=== PATIENT | female | born 1995 | race Caucasian/White ===

== ENCOUNTER 2016-09-15 01:44 | Observation (INO) | payer OTHER ==
[~2016-09-15] VITALS: Ht 177.8 cm; Wt 70.0 kg
[2016-09-15] VITALS (12 sets, daily range): BP systolic 94–112; BP diastolic 46–67
[2016-09-15] MEDS ORDERED: HYDR-2666 PO (02:19)
[2016-09-15] MEDS ORDERED: ONDANSETRON PF 4 MG/2 ML VIAL. IV PRN ×2 (03:00→09:45)
[2016-09-15] MEDS ORDERED: FENTANYL PF 100 MCG/2 ML VIAL. IV PRN ×2 (03:00→09:45)
[2016-09-15] MEDS ORDERED: ACETAMINOPHEN 325 MG TABLET. PO PRN (03:00)
[2016-09-15] MEDS: IV NORMAL SALINE 1000ML BAG 1,000 ML IV SCH ×2 (03:37→16:10)
[2016-09-15 06:00] LABS: BASO % 1 % (0-3); EOS % 1 % (0-3); HEMATOCRIT 35.4 % (36.0-47.0); HEMOGLOBIN 11.7 g/dL (12.0-15.5); LYMPH % 32 % (24-48); MEAN CORPUSCULAR HEMOGLOBIN 28 pg (25-35); MEAN CORPUSCULAR HGB CONC 33 g/dL (31-37); MEAN CORPUSCULAR VOLUME 84 fL (79-100); MONO % 8 % (0-9); NEUT % 58 % (31-73); PLATELET COUNT 172 x10^3/uL (140-400); RED CELL DISTRIBUTION WIDTH 14.3 % (11.5-14.5); WHITE BLOOD COUNT 6.3 x10^3/uL (4.0-11.0)
[2016-09-15 06:10] LABS: INR 1.3 (0.8-1.1); PROTHROMBIN TIME PATIENT 15.1 SEC (11.7-14.0)
[2016-09-15] MEDS ORDERED: PNEUMOCOCCAL VAX SCREEN BY RX. MC ONE (06:15)
[2016-09-15 06:29] LABS: CREATININE 0.9 mg/dL (0.6-1.0); GFR 79.8; POTASSIUM 3.8 mmol/L (3.5-5.1)
[2016-09-15 06:56] LABS: CALCIUM 8.3 mg/dL (8.5-10.1)
--- NOTE | 2016-09-15 08:13 | PDOC2 ---
VIRAL BOGGS PRINCIPAL SECURITY ARCHITECT 09/15/16 0813: CONSULT Date of Consult Date of Consult DATE: 09/15/16 TIME: 08:08 Reason for Consult Reason for Consult: cholelithiasis Referring Physician Referring Physician: Dr Avalos Identification/Chief Complaint Chief Complaint abdominal pain Source Source: Chart review, Patient History of Present Illness Reason for Visit: Reports abdominal pain intermittently for last 2 years, reports aggravated by eating. Associated nausea and emesis. This weekend pain was severe, reported RUQ, epigastric with radiation to her back. + history of constipation. Pain improved with medication Past Medical History Past Medical History no pertinent history Past Surgical History Past Surgical History: Tonsillectomy Social History <1 pack per day ALCOHOL: rare Drugs: None Lives: Alone Current Medications Current Medications Current Medications Ondansetron HCl (Zofran) 4 mg PRN Q6HRS PRN IV NAUSEA/VOMITING; Start 09/15/16 at 03:00 Fentanyl Citrate (Fentanyl 2ml Vial) 50 mcg PRN Q2HR PRN IV PAIN Last administered on 09/15/16 03:37; Start 09/15/16 at 03:00 Acetaminophen 650 mg 650 mg PRN Q6HRS PRN PO pain/ temp; Start 09/15/16 at 03: 00 Sodium Chloride (Iv Sodium Chloride 0.9% 1000ml Bag) 1,000 ml @ 100 mls/hr Q10H IV Last administered on 09/15/16 03:37; Start 09/15/16 at 03:00 Pneumococcal Polyvalent Vaccine (Do NOT chart on this placeholder) 1 each 1X ONCE MC ; Start 09/15/16 at 06:15; Stop 09/15/16 at 06:16; Status UNV Pneumococcal Polyvalent Vaccine (Pneumovax 23) 0.5 ml ONCE ONCE VAX IM ; Start 09/15/16 at 09:00; Stop 09/15/16 at 09:01 Active Scripts Active Reported Hydrocodone-Apap 5-325 (Hydrocodone Bit/Acetaminophen) 1 Each Tablet 1 Tab PO PRN Q6HRS PRN Allergies Allergies: Coded Allergies: peanut (Verified Allergy, Unknown, 09/15/16) ROS General: YES: Chills, No: Other (fevers) PSYCHOLOGICAL ROS: No: Anxiety, Depression Eyes: No Blurry vision, No Double vision HEENT: No: Heacaches, Sore Throat Hematological and Lymphatic: No: Bleeding Problems, Blood Clots Respiratory: YES: Shortness of breath (acute pain), No: Cough Cardiovascular: yes Chest Pain (acute pain from abdomen radiates up chest), No Palpitations Gastrointestinal: Yes Other (see hpi) Genitourinary: No Dysuria, No Hematuria Musculoskeletal: Yes Joint Pain (left wrist), No Muscle Pain Neurological: No Impaired Coord/balance, No Numbness/Tingling Skin: No Pruritus, No Rash Physical Exam General: Alert, Oriented X3, Cooperative, No acute distress HEENT: PERRLA, Mucous membr. moist/pink Lungs: Clear to auscultation, Normal air movement Heart: Regular rate, Normal S1, Normal S2, No murmurs Abdomen: Soft, Other (ND, mild tenderness to RUQ) Extremities: No clubbing, No cyanosis Skin: No rashes, No breakdown Neuro: Normal speech, Sensation intact MUSCULOSKELETAL: No deformity, No swelling Vitals VITALS Vital Signs Date Time Temp Pulse Resp B/P Pulse Ox O2 Delivery O2 Flow Rate FiO2 09/15/16 07:00 99.1 76 18 96/56 98 Room Air 99.1 Labs Labs Laboratory Tests Test 09/15/16 05:35 White Blood Count 6.3x10^3/uL (4.0-11.0) Red Blood Count 4.20x10^6/uL (3.50-5.40) Hemoglobin 11.7g/dL (12.0-15.5) Hematocrit 35.4% (36.0-47.0) Mean Corpuscular Volume 84fL (79-100) Mean Corpuscular Hemoglobin 28pg (25-35) Mean Corpuscular Hemoglobin Concent 33g/dL (31-37) Red Cell Distribution Width 14.3% (11.5-14.5) Platelet Count 172x10^3/uL (140-400) Neutrophils (%) (Auto) 58% (31-73) Lymphocytes (%) (Auto) 32% (24-48) Monocytes (%) (Auto) 8% (0-9) Eosinophils (%) (Auto) 1% (0-3) Basophils (%) (Auto) 1% (0-3) Neutrophils # (Auto) 3.7x10^3uL (1.8-7.7) Lymphocytes # (Auto) 2.0x10^3/uL (1.0-4.8) Monocytes # (Auto) 0.5x10^3/uL (0.0-1.1) Eosinophils # (Auto) 0.1x10^3/uL (0.0-0.7) Basophils # (Auto) 0.0x10^3/uL (0.0-0.2) Prothrombin Time 15.1SEC (11.7-14.0) Prothromb Time International Ratio 1.3 (0.8-1.1) Sodium Level 143mmol/L (136-145) Potassium Level 3.8mmol/L (3.5-5.1) Chloride Level 107mmol/L (98-107) Carbon Dioxide Level 26mmol/L (21-32) Anion Gap 10 (6-14) Blood Urea Nitrogen 15mg/dL (7-20) Creatinine 0.9mg/dL (0.6-1.0) Estimated GFR (Cockcroft-Gault) 79.8 Glucose Level 85mg/dL (70-99) Calcium Level 8.3mg/dL (8.5-10.1) Laboratory Tests Test 09/15/16 05:35 White Blood Count 6.3x10^3/uL (4.0-11.0) Red Blood Count 4.20x10^6/uL (3.50-5.40) Hemoglobin 11.7g/dL (12.0-15.5) Hematocrit 35.4% (36.0-47.0) Mean Corpuscular Volume 84fL (79-100) Mean Corpuscular Hemoglobin 28pg (25-35) Mean Corpuscular Hemoglobin Concent 33g/dL (31-37) Red Cell Distribution Width 14.3% (11.5-14.5) Platelet Count 172x10^3/uL (140-400) Neutrophils (%) (Auto) 58% (31-73) Lymphocytes (%) (Auto) 32% (24-48) Monocytes (%) (Auto) 8% (0-9) Eosinophils (%) (Auto) 1% (0-3) Basophils (%) (Auto) 1% (0-3) Neutrophils # (Auto) 3.7x10^3uL (1.8-7.7) Lymphocytes # (Auto) 2.0x10^3/uL (1.0-4.8) Monocytes # (Auto) 0.5x10^3/uL (0.0-1.1) Eosinophils # (Auto) 0.1x10^3/uL (0.0-0.7) Basophils # (Auto) 0.0x10^3/uL (0.0-0.2) Prothrombin Time 15.1SEC (11.7-14.0) Prothromb Time International Ratio 1.3 (0.8-1.1) Sodium Level 143mmol/L (136-145) Potassium Level 3.8mmol/L (3.5-5.1) Chloride Level 107mmol/L (98-107) Carbon Dioxide Level 26mmol/L (21-32) Anion Gap 10 (6-14) Blood Urea Nitrogen 15mg/dL (7-20) Creatinine 0.9mg/dL (0.6-1.0) Estimated GFR (Cockcroft-Gault) 79.8 Glucose Level 85mg/dL (70-99) Calcium Level 8.3mg/dL (8.5-10.1) Assessment/Plan Assessment/Plan cholelithiasis CT/US from [facility] reviewed, no cholecystitis, however findings of bile duct dilatation on 09/13 normal LFTS with bili 0.4, yesterday elevated LFTS and T bili 1.2-- repeat LFTS with normal T bili now keep NPO plan lap eleuterio with grams today, will hold off on GI consult unless operative findings warrant consult SHADE AL MD 09/15/16 1105: CONSULT Allergies Allergies: Coded Allergies: peanut (Verified Allergy, Unknown, 09/15/16) Assessment/Plan Assessment/Plan addendum i saw and examined her. i repeated ramirez parts of the consult. 20 yo with 2 year hx of intermittent epigastric and RUQ pain. can be severe. Increasingly frequent and severe episodes recently. pain resolved this am. associated with nausea. no sig pmh no prior abd surgery afeb vss abd soft nd nt ct report noted lab noted a/p cholelithiasis plan lap eleuterio, ioc, poss open. risks of bleeding, infection, need to convert to open, cbd stone, bile leak, duct/arterial/hollow viscus injury and remote risks of ami, cva, dvt/pe, pneumonia and d/w her. i used a drawing to aid the discussion. questions answered and she desires to proceed. VIRAL BOGGS PRINCIPAL SECURITY ARCHITECT Sep 15, 2016 08:13 SHADE AL MD Sep 15, 2016 11:05
[2016-09-15 08:19] LABS: ALBUMIN 3.3 g/dL (3.4-5.0); DIRECT BILIRUBIN 0.2 mg/dL (0.0-0.2); TOTAL BILIRUBIN 0.6 mg/dL (0.2-1.0); TOTAL PROTEIN 6.2 g/dL (6.4-8.2)
[2016-09-15] MEDS ORDERED: PNEUMOC CONJ VACC 23-VALENT 0.5 ML VIAL. VAX IM ONE (09:00)
[2016-09-15] MEDS ORDERED: SURGICEL HEMOSTAT 4X8 EACH. ONE (09:38)
[2016-09-15] MEDS ORDERED: IOHEXOL 300 MG/ML 50 ML VIAL. ONE (09:39)
[2016-09-15] MEDS ORDERED: BUPIVACAINE-EPI 0.5%-1:200000 50 ML VIAL. ONE (09:39)
[2016-09-15] MEDS ORDERED: IV RINGERS,LACTATED 1000ML 1,000 ML IV SCH (09:42)
[2016-09-15] MEDS ORDERED: PROCHLORPERAZINE 10 MG/2 ML VIAL. IV PRN (09:45)
[2016-09-15] MEDS ORDERED: LIDOCAINE 1% 1 ML SYRINGE. ID PRN (09:45)
[2016-09-15] MEDS ORDERED: MORPHINE SULFATE 2 MG/ML DISP.SYRIN. IV PRN (09:45)
[2016-09-15] MEDS ORDERED: HYDROmorphone 2 MG/ML VIAL IV PRN (09:45)
[2016-09-15] MEDS ORDERED: ROCURONIUM 50 MG/5 ML VIAL. ONE (10:02)
[2016-09-15] MEDS ORDERED: ONDANSETRON PF 4 MG/2 ML VIAL. ONE (10:02)
[2016-09-15] MEDS ORDERED: LIDOCAINE 2% 100 MG/5 ML SYRINGE. ONE (10:02)
[2016-09-15] MEDS ORDERED: DEXAMETHASONE SOD PHOS 20 MG/5 ML VIAL. ONE (10:02)
[2016-09-15] MEDS ORDERED: PROPOFOL 20 ML IV ONE (10:02)
[2016-09-15] MEDS ORDERED: FENTANYL PF 100 MCG/2 ML VIAL. ONE ×2 (10:30→11:09)
[2016-09-15] MEDS ORDERED: MIDAZOLAM HCL/PF 2 MG/2 ML VIAL. ONE (10:31)
[2016-09-15] MEDS ORDERED: CEFAZOLIN 2GM PREMIX 50 ML IV PRN (11:00)
[2016-09-15] MEDS ORDERED: GLYCOPYRROLATE 1 MG/5 ML VIAL. ONE (11:16)
[2016-09-15] MEDS ORDERED: NEOSTIGMINE METHYLSULFATE 5 MG/5 ML SYRINGE. ONE (11:16)
[2016-09-15] MEDS ORDERED: DESFLURANE 31 TO 60 MINUTES IH ONE (11:59)
--- NOTE | 2016-09-15 12:11 | RAD ---
Intraoperative cholangiogram History: Cholecystectomy. Procedure: A total of 3 fluoroscopic images of the right upper quadrant were obtained. The cystic duct was cannulated with surgeon and contrast was injected. Total fluoroscopic time was 25 seconds. Findings: There is moderate intrahepatic and extrahepatic biliary dilatation. There is a persistent filling defect involving the inferior common bile duct, worrisome for obstructing stone. No significant contrast material is seen within the duodenal sweep. Impression: Filling defect involving the inferior common bile duct, compatible with obstructing stone creating moderate biliary dilatation.
[2016-09-15] MEDS: FENTANYL PF 100 MCG/2 ML VIAL. IV PRN ×2 (12:26→12:49)
[2016-09-15 12:47] LABS: NEG OBC UR NEG; POS OBC UR POS
[2016-09-15] MEDS ORDERED: HYDROmorphone 2 MG/ML VIAL IVP PRN (13:30)
[2016-09-15] MEDS: OXYCODONE/APAP 5/325 TABLET. PO PRN ×2 (15:04→18:39)
--- NOTE | 2016-09-15 15:25 | PDOC2 ---
GI CONSULT Reason For Consult: CBD stone HPI: HPI: 20 y/o female transferred from [facility] where she was evaluated for RUQ, epigastric, and back pain. Has had pain intermittently for a couple years. Found to have gallstones and mildly dilated CBD w/ elevated LFTs. Underwent lap cholecystectomy w/ Dr. Porras this morning. IOC showed filling defect. Today , bili was normal (0.6), AST 127, ALT 134, normal Alk Phos. Currently has some RUQ pain around incisions and left shoulder/back pain. Feels hungry. Has occasional heartburn improved w/ drinking milk. Denies weight loss, diarrhea, constipation, hematochezia, melena, NSAID use. (Note other notes suggest h/o constipation.) No previous EGD or colonoscopy. PMH: PMH: cholecystectomy, tonsillectomy FH: Family History: No pertinent hx (denies GI cancers) Social History: Smoke: <1 pack per day ALCOHOL: rare Drugs: None ROS: GEN: Denies fevers, chills, sweats HEENT: Denies blurred vision, sore throat CV: Denies chest pain RESP: Denies shortness of air, cough GI: Per HPI : Denies hematuria, dysuria ENDO: Denies weight changes NEURO: Denies confusion, dizziness MSK: Denies weakness, +back pain SKIN: Denies jaundice, pruritus VItals: Vitals: Vital Signs Date Time Temp Pulse Resp B/P Pulse Ox O2 Delivery O2 Flow Rate FiO2 09/15/16 15:04 97 Room Air 09/15/16 13:14 97.8 60 14 105/58 97.8 09/15/16 12:49 6.0 Labs: Labs: Laboratory Tests Test 09/15/16 05:00 09/15/16 05:35 09/15/16 10:15 Total Bilirubin 0.6mg/dL (0.2-1.0) Direct Bilirubin 0.2mg/dL (0.0-0.2) Aspartate Amino Transf (AST/SGOT) 127U/L (15-37) Alanine Aminotransferase (ALT/SGPT) 134U/L (14-59) Alkaline Phosphatase 105U/L (46-116) Total Protein 6.2g/dL (6.4-8.2) Albumin 3.3g/dL (3.4-5.0) White Blood Count 6.3x10^3/uL (4.0-11.0) Red Blood Count 4.20x10^6/uL (3.50-5.40) Hemoglobin 11.7g/dL (12.0-15.5) Hematocrit 35.4% (36.0-47.0) Mean Corpuscular Volume 84fL (79-100) Mean Corpuscular Hemoglobin 28pg (25-35) Mean Corpuscular Hemoglobin Concent 33g/dL (31-37) Red Cell Distribution Width 14.3% (11.5-14.5) Platelet Count 172x10^3/uL (140-400) Neutrophils (%) (Auto) 58% (31-73) Lymphocytes (%) (Auto) 32% (24-48) Monocytes (%) (Auto) 8% (0-9) Eosinophils (%) (Auto) 1% (0-3) Basophils (%) (Auto) 1% (0-3) Neutrophils # (Auto) 3.7x10^3uL (1.8-7.7) Lymphocytes # (Auto) 2.0x10^3/uL (1.0-4.8) Monocytes # (Auto) 0.5x10^3/uL (0.0-1.1) Eosinophils # (Auto) 0.1x10^3/uL (0.0-0.7) Basophils # (Auto) 0.0x10^3/uL (0.0-0.2) Prothrombin Time 15.1SEC (11.7-14.0) Prothromb Time International Ratio 1.3 (0.8-1.1) Sodium Level 143mmol/L (136-145) Potassium Level 3.8mmol/L (3.5-5.1) Chloride Level 107mmol/L (98-107) Carbon Dioxide Level 26mmol/L (21-32) Anion Gap 10 (6-14) Blood Urea Nitrogen 15mg/dL (7-20) Creatinine 0.9mg/dL (0.6-1.0) Estimated GFR (Cockcroft-Gault) 79.8 Glucose Level 85mg/dL (70-99) Calcium Level 8.3mg/dL (8.5-10.1) Urine Test Negative (NEG) Allergies: Coded Allergies: peanut (Verified Allergy, Unknown, 09/15/16) Medications: Current Medications Medications (Trade) Dose Ordered Sig/Javier Route PRN Reason Start Time Stop Time Status Last Admin Dose Admin Fentanyl Citrate 50 mcg 50 mcg PRN Q2HR PRN IV PAIN 09/15/16 03:00 09/15/16 03:37 Sodium Chloride 1,000 ml @ 100 mls/hr Q10H IV 09/15/16 03:00 09/15/16 03:37 Cefazolin Sodium/ Dextrose (Ancef 2gm Premix) 50 ml @ 100 mls/hr 1X PREOP PRN IV general operations agent 09/15/16 11:00 09/16/16 18:00 09/15/16 11:05 Iohexol (Omnipaque 300 Mg/ml) 50 ml STK-MED ONCE .ROUTE 09/15/16 09:39 09/15/16 09:40 DC 09/15/16 11:26 Bupivacaine HCl/ Epinephrine Bitart (Marcaine-Epi 0.5%-1:[id number]) 50 ml STK-MED ONCE .ROUTE 09/15/16 09:39 09/15/16 09:40 DC 09/15/16 11:21 Fentanyl Citrate (Fentanyl 2ml Vial) 50 mcg PRN Q5MIN PRN IV MODERATE PAIN 09/15/16 09:45 09/15/16 18:00 09/15/16 12:49 Oxycodone/ Acetaminophen (Percocet 5/325) 2 tab PRN Q4HRS PRN PO PAIN 09/15/16 13:45 09/15/16 15:04 Imaging: Imaging: IOC 09/15/16 Impression: Filling defect involving the inferior common bile duct, compatible with obstructing stone creating moderate biliary dilatation. PE: GEN: NAD HEENT: Atraumatic, PERRL LUNGS: CTAB HEART: RRR, ABD: S/ND, RUQ and epigastric tenderness EXTREMITY: No edema SKIN: No rashes, no jaundice NEURO/PSYCH: A & O 3 A/P: A/P: S/p cholecystectomy w/ abnormal IOC -filling defect as above Elevated LFTs - improved Upper abd pain, left shoulder/back pain Heartburn -occasional, no previous EGD, improved w/ milk -- Labs to be rechecked tomorrow - follow LFTs w/ consideration for ERCP. Dr. Aviles to see later. JONATHAN BLAIR Sep 15, 2016 15:25
--- NOTE | 2016-09-15 15:56 | PDOC ---
BRIEF OPERATIVE NOTE Pre-Op Diagnosis cholelithiasis Post-Op Diagnosis same +cbd stone Procedure Performed lap eleuterio,ioc Surgeon merlyn al Anesthesia Type: General Blood Loss 25 IV Fluid 1300 Specimens Obtained gb Findings cbd stone Complications 0 Additional Remarks jessica well, to rr stable. GI consult. d/w Zee. SHADE AL MD Sep 15, 2016 15:56
[2016-09-15] MEDS: PANTOPRAZOLE 40 MG TABLET.DR. PO SCH (16:59)
[2016-09-15] MEDS: CEFAZOLIN SODIUM 1 GM in IV NORMAL SALINE 50ML 50 ML IV SCH ×2 (16:59→21:37)
[2016-09-16] MEDS: IV NORMAL SALINE 1000ML BAG 1,000 ML IV SCH ×2 (01:57→09:00)
[2016-09-16] MEDS: OXYCODONE/APAP 5/325 TABLET. PO PRN ×3 (02:05→14:56)
--- NOTE | 2016-09-16 02:10 | OP ---
DATE OF SURGERY: 09/15/2016 PREOPERATIVE DIAGNOSIS: Cholelithiasis. POSTOPERATIVE DIAGNOSES: 1. Cholelithiasis. 2. Choledocholithiasis. PROCEDURE: Laparoscopic cholecystectomy with intraoperative cholangiogram. SURGEON: Shade Al M.D. ANESTHESIA: General. ESTIMATED BLOOD LOSS: 25 mL. INTRAVENOUS FLUIDS: 1500 mL. INDICATIONS: The patient is a 20-year-old female who presents with episodes of biliary colic. She is taken for cholecystectomy. FINDINGS: She has a filling defect and a meniscus sign in the distal common duct. No flow of contrast into the duodenum. She will be maintained on IV antibiotics postoperatively, there was concern for potentially developed cholangitis, now that she has had manipulation of her common duct, GI has been consulted as well. PROCEDURE IN DETAIL: After informed consent was obtained, the patient was taken to the operating room and placed in the supine position. After adequate induction of general anesthesia, she was prepped and draped in the usual sterile fashion. An umbilical skin incision was made with a scalpel, subcutaneous tissues were spread with a hemostat. [facility] was used to grab the fascia and lift it anteriorly. Veress needled was used to gain access to the peritoneal cavity. Low opening pressures confirmed intraperitoneal placement of Veress. Pneumoperitoneum to 15 mmHg was established followed by placement of 5-mm port. A 5-mm 30-degree lens was inserted, which revealed good port placement. No evidence of entry trauma. She was placed head up, rotated towards her left. Three additional ports were placed under direct vision, one was 11-mm epigastric port and two 5-mm right lateral ports. The fundus of the gallbladder was retracted over the liver and slightly towards the right. The infundibulum was retracted towards the toes and towards the right to open the triangle of Calot. The leading peritoneal edge was scored with cautery medially and laterally and carried back towards the liver at the level of the infundibulum. [place] dissector was used to dissect out the triangle of Calot. At the completion of dissection, two structures were seen leading directly to the gallbladder, one was a cystic artery and one was a cystic duct. The gallbladder had been dissected away from the cystic plate. The liver could be seen behind the gallbladder. The base of the gallbladder was free of extraneous tissue. Two clips were placed in the cystic artery proximally and one distally and the artery divided sharply. A clip was placed on the cystic duct adjacent to the gallbladder. Ductotomy was made with scissors. Intraoperative cholangiogram showed free flow of contrast through the cystic duct, common bile duct, common hepatic, left and right hepatics and intrahepatic radicles with no flow of contrast into the duodenum. Distally, she had a filling defect with a meniscus sign and the extrahepatic ducts were dilated. All consistent with choledocholithiasis. The cholangiogram was then completed. Two clips were placed on the cystic duct, distal ductotomy. Ductotomy completed with scissors. The cystic duct was large, and therefore, it was further secured with a PDS Endoloop placed just distal to the clips. Care was taken to make sure that the PDS Endoloop did not encroach upon undissected tissue and that it encompass the entire diameter of the duct. There was no bile leakage at this point. Gallbladder was removed from bed of the liver with cautery and placed in a laparoscopic bag and brought out through the epigastric incision. She had a vessel that was leading to the right side of the liver and this was just at the cystic plate, this had some fibrous tissue overlying it, that was bleeding minimally, pressure was held on that with a suction manager sas and the bleeding slowed and was nearly completely hemostatic. Application of small amount of FloSeal in this area made the area completely hemostatic. Fascial closure device was used to close the fascia at the epigastric incision using 0 Vicryl suture. One final look at the right upper quadrant revealed the liver bed to be hemostatic and without bile leakage. Ports were removed under direct vision and were hemostatic. Pneumoperitoneum was desufflated. Skin incisions were closed with 4-0 Monocryl in subcuticular fashion. Sterile dressings were placed. She tolerated the procedure well. There were no apparent complications. She was then transferred in stable condition to the recovery room. SHADE AL MD DR: ANGELIA/shelia JOB#: [id number] / [id number] ENEIDA Chapa MD
[2016-09-16 03:49] VITALS: BP 105/61
[2016-09-16 03:55] LABS: BASO % 1 % (0-3); EOS % 0 % (0-3); HEMATOCRIT 34.8 % (36.0-47.0); HEMOGLOBIN 11.7 g/dL (12.0-15.5); LYMPH # 1.4 x10^3/uL (1.0-4.8); LYMPH % 15 % (24-48); MEAN CORPUSCULAR HEMOGLOBIN 28 pg (25-35); MEAN CORPUSCULAR HGB CONC 34 g/dL (31-37); MEAN CORPUSCULAR VOLUME 84 fL (79-100); MONO % 7 % (0-9); NEUT % 78 % (31-73); PLATELET COUNT 158 x10^3/uL (140-400); RED BLOOD COUNT 4.12 x10^6/uL (3.50-5.40); RED CELL DISTRIBUTION WIDTH 14.1 % (11.5-14.5); WHITE BLOOD COUNT 9.2 x10^3/uL (4.0-11.0)
[2016-09-16 04:18] LABS: CALCIUM 8.3 mg/dL (8.5-10.1); CREATININE 0.8 mg/dL (0.6-1.0); GFR 91.4; POTASSIUM 3.8 mmol/L (3.5-5.1); TOTAL BILIRUBIN 0.5 mg/dL (0.2-1.0)
[2016-09-16] MEDS: CEFAZOLIN SODIUM 1 GM in IV NORMAL SALINE 50ML 50 ML IV SCH ×2 (05:33→14:01)
[2016-09-16 07:15] VITALS: BP 103/60
--- NOTE | 2016-09-16 07:40 | ACF ---
Admit Criteria Forms Admit Criteria Forms Admit Criteria Forms GALLBLADDER OR BILE DUCT INFLAMMATION OR STONE Clinical Indications for Admission to Inpatient Care ( Place 'X' for any and all applicable criteria): Admission is indicated for patients with ANY ONE of the following(1)(2)(3)(4)(5) : [ ]I. Acute cholecystitis as indicated by ALL of the following: [ ]a) Right upper quadrant pain, mass, or tenderness [ ]b) Systemic signs of inflammation indicated by ANY ONE of the following: [ ]i) Fever [ ]ii) C-reactive protein level greater than 10 mg/L (95 nmol/L) [ ]iii) White blood cell count greater than 10,000/mm3 (10 x109/L) or less than 4000/mm3 (4 x109/L) [X]II. Inpatient admission required rather than observation care (Also use Gallbladder or Bile Duct Inflammation or Stone: Observation Care as appropriate) because of ANY ONE of the following: [ ]a) Common bile duct obstruction diagnosed [ ]b) Vomiting that is severe or persistent [ ]c) Severe pain requiring acute inpatient management [ ]d) Signs of intestinal obstruction or peritonitis [A] [ ]e) Severe electrolyte abnormalities requiring inpatient care [ ]f) Absent bowel sounds with complete ileus(8) [ ]g) Hemodynamic instability [ ]h) High fever or infection requiring inpatient admission as indicated by ANY ONE of the following (9): [ ]1) Appropriate outpatient or observation care antimicrobial Treatment. unavailable, not effective, or not feasible [ ]2) Temperature greater than 104.9 degrees F (40.5 degrees C) (oral) [ ]3) Temperature greater than 103.1 degrees F (39.5 degrees C) (oral) or less than 96.8 degrees F (36 degrees C) (rectal) that does not respond to all emergency treatment measures [ ]4) Documented bacteremia [ ]i) IV fluid to replace significant ongoing losses (greater than 3 L/m2 per day) [ ]j) Percutaneous or open drainage (eg, abscess, biliary tract) procedures [X]k) Immediate inpatient surgery [ ]l) Other condition, treatment or monitoring requiring inpatient admission [ ]III. Acute cholangitis as indicated by ALL of the following(9)(10): [ ]a) Systemic signs of inflammation indicated by ANY ONE of the following: [ ]i) Fever [ ]ii) C-reactive protein level greater than 10 mg/L (95 nmol /L) [ ]iii) White blood cell count greater than 10,000/mm3 (10 x109/L) or less than 4000/mm3 (4 x109/L) [ ]b) Evidence of common bile duct disease indicated by ANY ONE of the following: [ ]i) Total serum bilirubin level greater than or equal to 2 mg/dL (34 micromoles/L) [ ]ii) Liver function test (alkaline phosphatase (ALP), r- glutamyltransferase (GGT), aspartate aminotransferase (AST), or alanine aminotransferase (ALT)) greater than 1.5 times the upper limit of normal[B] [ ]iii) Hepatobiliary imaging showing biliary dilatation or evidence of etiology (eg, stricture, stone, previously placed stent) Extended stay beyond goal length of stay may be needed for (1)(2)): [ ]a) Bacteremia or Hemodynamic instability [ ]b) Cholecystectomy [ ]c) Other surgical procedure(24) [ ]d) Percutaneous or endoscopic ultrasound-guided cholecystostomy The original [facility] [employer] content created by [facility] has been revised. The portions of the content which have been revised are identified through the use of italic text or in bold, and [facility] has neither reviewed nor approved the modified material. All other unmodified content is copyright [facility] [employer]. Please see references footnoted in the original [facility] [employer] edition 2016 CORKY BARROW Sep 16, 2016 07:40
[2016-09-16] MEDS: PANTOPRAZOLE 40 MG TABLET.DR. PO SCH (09:42)
[2016-09-16 11:00] VITALS: BP 109/56
--- NOTE | 2016-09-16 11:22 | PDOC ---
Provider Note Provider Note jessica po pain controlled afeb vss abd soft nd approp tender a/p s/p lap eleuterio, ioc. choledocholithiasis suspected--plan per gi. SHADE AL MD Sep 16, 2016 11:22
--- NOTE | 2016-09-16 11:27 | PDOC ---
Subjective: Subjective: Doing okay, says it hurts to eat. Ate mashed potatoes last night, didn't care for breakfast options this morning. No n/v. Denies flatus/stool. Objective: Objective: Per RN - doing well. Reviewed surg note. Vital Signs: Vital Signs Date Time Temp Pulse Resp B/P Pulse Ox O2 Delivery O2 Flow Rate FiO2 09/16/16 08:00 Room Air 09/16/16 07:15 98.4 70 18 103/60 99 98.4 09/15/16 12:49 6.0 Labs: Laboratory Tests Test 09/16/16 03:37 White Blood Count 9.2x10^3/uL Red Blood Count 4.12x10^6/uL Hemoglobin 11.7g/dL Hematocrit 34.8% Mean Corpuscular Volume 84fL Mean Corpuscular Hemoglobin 28pg Mean Corpuscular Hemoglobin Concent 34g/dL Red Cell Distribution Width 14.1% Platelet Count 158x10^3/uL Neutrophils (%) (Auto) 78% Lymphocytes (%) (Auto) 15% Monocytes (%) (Auto) 7% Eosinophils (%) (Auto) 0% Basophils (%) (Auto) 1% Neutrophils # (Auto) 7.2x10^3uL Lymphocytes # (Auto) 1.4x10^3/uL Monocytes # (Auto) 0.6x10^3/uL Eosinophils # (Auto) 0.0x10^3/uL Basophils # (Auto) 0.0x10^3/uL Sodium Level 139mmol/L Potassium Level 3.8mmol/L Chloride Level 106mmol/L Carbon Dioxide Level 25mmol/L Anion Gap 8 Blood Urea Nitrogen 8mg/dL Creatinine 0.8mg/dL Estimated GFR (Cockcroft-Gault) 91.4 BUN/Creatinine Ratio 10 Glucose Level 103mg/dL Calcium Level 8.3mg/dL Total Bilirubin 0.5mg/dL Aspartate Amino Transf (AST/SGOT) 139U/L Alanine Aminotransferase (ALT/SGPT) 175U/L Alkaline Phosphatase 108U/L Total Protein 6.0g/dL Albumin 3.0g/dL Albumin/Globulin Ratio 1.0 PE: GEN: NAD LUNGS: CTAB HEART: RRR ABD: BS+, epigastric tenderness, some RUQ tenderness NEURO/PSYCH: A & O 3 A/P: S/p cholecystectomy w/ abnormal IOC -bili normal, AST and ALT some elevated Abd pain -- Reviewed labs w/ Dr. Aviles this morning - no plans for ERCP at this time. JONATHAN BLAIR Sep 16, 2016 11:27
--- NOTE | 2016-09-16 14:44 | PATHOLOGY ---
PATHOLOGY REPORT * * * * * * * * FINAL DIAGNOSIS: Gallbladder, cholecystectomy: - Chronic cholecystitis. - Cholelithiasis. (WILFRIDM:; d/t: 09/16/16) REPORT ELECTRONICALLY SIGNED BY: Georgi Farias M.D. DATE/TIME: 09/16/2016 14:43 * * * * * * * * GROSS PATHOLOGY: Received in formalin labeled "Briseida Cerrato, gallbladder and contents," is a 8.2 x 2.4 x 1.6 cm, previously punctured gallbladder with pink-huizar serosal surfaces. Opening the gallbladder reveals velvety and light green to red huizar mucosa and an average wall thickness of 0.1 cm. Multiple yellow, friable calculi are present and no masses are noted grossly. Pipe Fitter Supervisor Maintenance sections from the body and fundus are submitted along with the proximal margin in cassette A1. INITIAL CPT CODE(S): A; 76507 Professional services performed [place] [facility] [place] [address] Technical services performed by [facility] at [address] [place] [address]. SPECIMEN(S) RECEIVED: A.Gallbladder and contents CLINICAL HISTORY: Cholelithiasis PATIENT: BRISEIDA CERRATO /AGE: 509/24/1995 (Age: 20) PATIENT #: [id number] ALT CASE #: SPECIMEN COLLECTION DATE: 09/15/2016 SPECIMEN RECEIVED DATE: 09/15/2016 [facility] - [address] [place] [address] - PHONE: [phone] * * * END OF REPORT * * *
[2016-09-16 15:00] VITALS: BP 99/49
[2016-09-16] MEDS ORDERED: HYDR-2666 PO (15:34)
--- NOTE | 2016-09-16 17:03 | SSS ---
ADMIT DATE: 09/16/2016 SHORT STAY ADMIT DISCHARGE CHIEF COMPLAINT: Cholelithiasis. HISTORY OF PRESENT ILLNESS: The patient is a 20-year-old woman who has a history of abdominal pain intermittently for the last 2 years, reports this to be worse with eating. Also, has some nausea with vomiting occasionally with this. She once again had an episode starting this weekend with severe right upper quadrant pain radiating into her epigastrium and to her back. This was associated with constipation. The patient decided to present to the Emergency Room. At [facility], a CT was consistent with cholelithiasis and the patient was transferred to [facility] for further medical care. HOSPITAL COURSE: The patient was immediately taken to the OR for cholecystectomy by Dr. Porras. An intraoperative cholangiogram revealed a filling defect in the inferior common bile duct compatible with an obstructing stone creating moderate biliary dilation. Cholecystectomy was performed. The patient recovered well from surgery. The GI service was following as well. With no appreciable bump in her hepatic enzymes, the findings were thought to be either a passed stone versus an air bubble on cholangiogram. No ERCP was indicated. As the patient continued to improve steadily and was able to tolerate p.o. nutrition, she was deemed stable from surgical standpoint for discharge to home on the . PAST MEDICAL HISTORY: None. OBSTETRICS AND GYNECOLOGY HISTORY: She is a 1, para 1. FAMILY HISTORY: No history of abdominal abnormalities including cholelithiasis. SOCIAL HISTORY: She lives with her sister and their three children. 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 Smokes an occasional cigarette. Denies excessive alcohol use, no drug use. ALLERGIES: No known drug allergies. MEDICATIONS: Essentially none at home. REVIEW OF SYSTEMS: The patient is doing fairly well postop. Mild abdominal pain well controlled with p.o. pain medication. PHYSICAL EXAMINATION: VITAL SIGNS: Stable. She is afebrile. GENERAL: She is alert and oriented, in no acute distress. LUNGS: Clear. HEART: Regular rate and rhythm. ABDOMEN: Has positive bowel sounds, soft, tenderness to palpation, especially around the port site. EXTREMITIES: Show no edema. SKIN: Warm, soft and dry. LABORATORY DATA: BUN and creatinine of 8 and 0.8, normal electrolytes. AST/ALT 139/75, alkaline phosphatase of 108, total bilirubin of 0.5. CBC with a WBC of 9.2, hemoglobin 11.7, platelets of 158. DISCHARGE DATE: 09/16/2016. DISCHARGE DISPOSITION: To home. DISCHARGE CONDITION: Improved. DISCHARGE DIAGNOSES: Cholelithiasis status post laparoscopic cholecystectomy. DISCHARGE MEDICATIONS: Hydrocodone 5/325 one to two every 4 hours p.r.n. #23. DISCHARGE INSTRUCTIONS: The patient will follow up with Dr. Porras in 2 weeks. KEEGAN HANDLEY MD DR: NINA/nts JOB#: [id number] / [id number] MARIO
== END 2016-09-16 16:10 | disposition home or self-care (01) ==
LOC: 4 NORTH 01:44 → INTOOBSV 01:44
PROVIDERS: ADMIT Internal Medicine; ATTEND Internal Medicine
DX: K80.70 Calculus of gallbladder and bile duct without cholecystitis without obstruction (principal); F17.210 Nicotine dependence, cigarettes, uncomplicated
CPT/HCPCS: 36415; 47563; 74300; 80048; 80053; 80076; 81025; 85027; 85610; 96365; 96366; 96375; 96376; C1782; G0378; G0379; J0690; J1100; J2250; J2405; J2704; J2710; J3010; J3490; J7030; Q9967; 88304

== ENCOUNTER 2016-09-20 12:36 | Inpatient (IN) | payer OTHER ==
[~2016-09-20] VITALS: Ht 177.8 cm; Wt 76.2 kg
[~2016-09-20 12:36] MED LIST: HYDR-2666 PO
[2016-09-20 15:00] VITALS: BP 117/63
[2016-09-20] MEDS ORDERED: OXYC1TAB7 PO (17:17)
[2016-09-20] MEDS ORDERED: PROM25TA10 PO (17:17)
[2016-09-20] MEDS ORDERED: ONDANSETRON PF 4 MG/2 ML VIAL. IV PRN (18:30)
[2016-09-20] MEDS: IV NORMAL SALINE 1000ML BAG 1,000 ML IV SCH (18:44)
[2016-09-20 19:00] VITALS: BP 102/68
[2016-09-20] MEDS: MORPHINE SULFATE 2 MG/ML DISP.SYRIN. IV PRN (21:33)
--- NOTE | 2016-09-20 22:19 | HP ---
ADMIT DATE: 09/20/2016 CHIEF COMPLAINT: Abdominal pain and nausea. HISTORY OF PRESENT ILLNESS: The patient is a pleasant, relatively healthy 20-year-old female, who had laparoscopic cholecystectomy with Dr. Porras ____ recently. She presented today to [facility] ER complaining of abdominal pain. She is noted to probably have a retained duct stone. Her bilirubin is high. I discussed the case with ER physician, for now transferred to our facility with consultation with Dr. Porras. PAST MEDICAL HISTORY: Recent laparoscopic cholecystectomy. ALLERGIES: PEA NUTS. FAMILY HISTORY: Hypertension. SOCIAL HISTORY: She does not drink, smoke or take drugs. MEDICATIONS: Reviewed, please refer to the MRAD. REVIEW OF SYSTEMS: GENERAL: No history of weight change, weakness or fevers. SKIN: No bruising, hair changes or rashes. EYES: No blurred, double or loss of vision. NOSE AND THROAT: No history of nosebleeds, hoarseness or sore throat. HEART: No history of palpitations, chest pain or shortness of breath on exertion. LUNGS: Denies cough, hemoptysis, wheezing or shortness of breath. GASTROINTESTINAL: The patient complains of abdominal pain. GENITOURINARY: No history of frequency, urgency, hesitancy or nocturia. NEUROLOGIC: Denies history of numbness, tingling, tremor or weakness. PSYCHIATRIC: No history of panic, anxiety or depression. ENDOCRINE: No history of heat or cold intolerance, polyuria or polydipsia. EXTREMITIES: Denies muscle weakness, joint pain, pain on walking or stiffness. PHYSICAL EXAMINATION: VITAL SIGNS: Temperature afebrile, pulse 67, respirations 18, blood pressure 120/63. GENERAL: She is sleeping. She awakens. GASTROINTESTINAL: She complains of nausea and pain. HEART: Distant S1, S2. LUNGS: Clear. ABDOMEN: Soft, decreased bowel sounds. EXTREMITIES: No edema. SKIN: No rashes. PSYCHIATRIC: She seems depressed. VASCULAR: Good capillary refill. ENDOCRINE: No thyromegaly. LYMPHATICS: No cervical nodes. HEMATOPOIETIC: No bruising. ASSESSMENT AND PLAN: Hyperbilirubinemia, abdominal pain and nausea in a young female, who had a recent laparoscopic cholecystectomy, suspect possible retained duct stone. The patient has been admitted, we will consulting Dr. Porras, p.r.n. antiemetics, p.r.n. narcotics, IV fluids, frequent labs. BRITTON BENNETT DO DR: JERAMY/shelia JOB#: [id number] / [id number]
[2016-09-20 23:33] VITALS: BP 102/46
[2016-09-21] MEDS: MORPHINE SULFATE 2 MG/ML DISP.SYRIN. IV PRN ×6 (01:52→21:13)
[2016-09-21 03:06] VITALS: BP 105/50
[2016-09-21] MEDS: IV NORMAL SALINE 1000ML BAG 1,000 ML IV SCH ×2 (06:34→19:46)
[2016-09-21 07:00] VITALS: BP 102/49
--- NOTE | 2016-09-21 09:29 | PDOC2 ---
VIRAL BOGGS POWDER COAT PAINTER 09/21/16 0929: CONSULT Date of Consult Date of Consult DATE: 09/21/16 TIME: 09:21 Reason for Consult Reason for Consult: s/p ryan mcclellan Referring Physician Referring Physician: [facility] Identification/Chief Complaint Chief Complaint abdominal pain Source Source: Chart review, Patient History of Present Illness Reason for Visit: Ryan mcclellan with Dr Porras 5 days ago, abnormal IOC with possible CBD stone. GI was consulted, followed, however her LFTs were normal, no intervention done at that time. She discharged home , Thursday she developed severe RUQ/ epigastric pain that continued this weekend. Associated nausea and emesis. Currently feeling better after pain medication Past Medical History Psych: Anxiety, Depression Past Surgical History Past Surgical History: Cholecystectomy, Tonsillectomy Family History Family History: Hypertension Social History <1 pack per day ALCOHOL: rare Drugs: None Lives: Alone Current Medications Current Medications Current Medications Sodium Chloride (Iv Sodium Chloride 0.9% 1000ml Bag) 1,000 ml @ 75 mls/hr [id number] IV Last administered on 09/21/16 06:34; Start 09/20/16 at 18:30 Ondansetron HCl (Zofran) 4 mg PRN Q6HRS PRN IV NAUSEA/VOMITING Last administered on 09/20/16 21:33; Start 09/20/16 at 18:30 Morphine Sulfate 2 mg PRN Q2HR PRN IV PAIN Last administered on 09/21/16 06:33 ; Start 09/20/16 at 18:30 Active Scripts Active Reported Oxycodone-Acetaminophen 5-325 (Oxycodone Hcl/Acetaminophen) 1 Each Tablet 1 Tab PO PRN PRN Promethazine Hcl 25 Mg Tablet 25 Mg PO PRN PRN Allergies Allergies: Coded Allergies: peanut (Verified Allergy, Severe, 09/21/16) ROS General: No: Chills, Other (fevers) PSYCHOLOGICAL ROS: No: Anxiety, Depression Eyes: No Blurry vision, No Double vision HEENT: No: Heacaches, Sore Throat Hematological and Lymphatic: No: Bleeding Problems, Blood Clots Respiratory: No: Cough, Shortness of breath Cardiovascular: No Chest Pain, No Palpitations Gastrointestinal: Yes Other (see hpi) Genitourinary: No Dysuria, No Hematuria Musculoskeletal: No Joint Pain, No Muscle Pain Neurological: No Memory Loss, No Numbness/Tingling Skin: No Pruritus, No Rash Physical Exam General: Alert, Oriented X3, Cooperative, No acute distress HEENT: PERRLA, Mucous membr. moist/pink Lungs: Clear to auscultation, Normal air movement Heart: Regular rate, Normal S1, Normal S2, No murmurs Abdomen: Soft, No tenderness, Other (ND, lap sites c/d/i, no erythema ) Extremities: No clubbing, No cyanosis Skin: No rashes, No significant lesion Neuro: Normal gait, Normal speech Psych/Mental Status: Mental status NL, Mood NL MUSCULOSKELETAL: No deformity, No swelling Vitals VITALS Vital Signs Date Time Temp Pulse Resp B/P Pulse Ox O2 Delivery O2 Flow Rate FiO2 09/21/16 03:06 98.1 87 20 105/50 97 Room Air 98.1 Assessment/Plan Assessment/Plan reviewed CT from [facility], 3.6 cm fluid collection in gb fossa, biliary ductal dilatation has improved, elevated LFTS, t bili 2.8 s/p lap eleuterio 5 days ago with abnormal IOC, possible CBD stone will recheck LFTS, will consult GI NPO ENEIDA DOBSON MD 09/21/16 1710: CONSULT Allergies Allergies: Coded Allergies: peanut (Verified Allergy, Severe, 09/21/16) Assessment/Plan Assessment/Plan Above reviewed, GI consulted, consider ERCP, will check HIDA ?bile leak VIRAL BOGGS APRN Sep 21, 2016 09:29 ENEIDA DOBSON MD Sep 21, 2016 17:10
[2016-09-21 09:42] LABS: BASO % 1 % (0-3); EOS % 7 % (0-3); HEMATOCRIT 37.3 % (36.0-47.0); HEMOGLOBIN 12.5 g/dL (12.0-15.5); LYMPH # 1.4 x10^3/uL (1.0-4.8); LYMPH % 25 % (24-48); MEAN CORPUSCULAR HEMOGLOBIN 28 pg (25-35); MEAN CORPUSCULAR HGB CONC 34 g/dL (31-37); MEAN CORPUSCULAR VOLUME 83 fL (79-100); MONO % 7 % (0-9); NEUT % 62 % (31-73); PLATELET COUNT 175 x10^3/uL (140-400); RED BLOOD COUNT 4.48 x10^6/uL (3.50-5.40); RED CELL DISTRIBUTION WIDTH 14.4 % (11.5-14.5); WHITE BLOOD COUNT 5.6 x10^3/uL (4.0-11.0)
[2016-09-21 10:02] LABS: CALCIUM 8.7 mg/dL (8.5-10.1); CREATININE 0.8 mg/dL (0.6-1.0); GFR 91.4; POTASSIUM 3.9 mmol/L (3.5-5.1)
[2016-09-21 10:09] LABS: ALBUMIN 3.1 g/dL (3.4-5.0); ALBUMIN/GLOBULIN RATIO 0.9 (1.0-1.7); TOTAL BILIRUBIN 0.7 mg/dL (0.2-1.0); TOTAL PROTEIN 6.6 g/dL (6.4-8.2)
--- NOTE | 2016-09-21 10:55 | PDOC2 ---
GI CONSULT Reason For Consult: abd pain, abn lfts, retained cbd stone HPI: HPI: 20 yo WF recently here with cholecystitis and had lap eleuterio - improved post op but did have retained stone on IOC, but labs were only minimally abnormal. Since she was tolerating diet and improved, she was sent home without ERC. Now presents with recurrent periumbilical abd pain and nausea even on low fat diet. Pain did not seem to occur immediately after a meal but admission labs show marked increase in LFTs. No fever, chills etc PMH: PMH: HTN, cholelithiasis FH: Family History: No pertinent hx, Other (mother and cousin have had cholecystectomies) Social History: Smoke: <1 pack per day ALCOHOL: rare Drugs: None ROS: GEN: Denies fevers, chills, sweats HEENT: Denies blurred vision, sore throat CV: Denies chest pain RESP: Denies shortness of air, cough GI: Per HPI : Denies hematuria, dysuria ENDO: Denies weight changes NEURO: Denies confusion, dizziness MSK: Denies weakness, joint pain/swelling SKIN: Denies jaundice, pruritus VItals: Vitals: Vital Signs Date Time Temp Pulse Resp B/P Pulse Ox O2 Delivery O2 Flow Rate FiO2 09/21/16 07:00 98.1 71 16 102/49 98 Room Air 98.1 Labs: Labs: Laboratory Tests Test 09/21/16 09:20 White Blood Count 5.6x10^3/uL (4.0-11.0) Red Blood Count 4.48x10^6/uL (3.50-5.40) Hemoglobin 12.5g/dL (12.0-15.5) Hematocrit 37.3% (36.0-47.0) Mean Corpuscular Volume 83fL (79-100) Mean Corpuscular Hemoglobin 28pg (25-35) Mean Corpuscular Hemoglobin Concent 34g/dL (31-37) Red Cell Distribution Width 14.4% (11.5-14.5) Platelet Count 175x10^3/uL (140-400) Neutrophils (%) (Auto) 62% (31-73) Lymphocytes (%) (Auto) 25% (24-48) Monocytes (%) (Auto) 7% (0-9) Eosinophils (%) (Auto) 7% (0-3) Basophils (%) (Auto) 1% (0-3) Neutrophils # (Auto) 3.5x10^3uL (1.8-7.7) Lymphocytes # (Auto) 1.4x10^3/uL (1.0-4.8) Monocytes # (Auto) 0.4x10^3/uL (0.0-1.1) Eosinophils # (Auto) 0.4x10^3/uL (0.0-0.7) Basophils # (Auto) 0.0x10^3/uL (0.0-0.2) Sodium Level 139mmol/L (136-145) Potassium Level 3.9mmol/L (3.5-5.1) Chloride Level 106mmol/L (98-107) Carbon Dioxide Level 26mmol/L (21-32) Anion Gap 7 (6-14) Blood Urea Nitrogen 5mg/dL (7-20) Creatinine 0.8mg/dL (0.6-1.0) Estimated GFR (Cockcroft-Gault) 91.4 BUN/Creatinine Ratio 6 (6-20) Glucose Level 93mg/dL (70-99) Calcium Level 8.7mg/dL (8.5-10.1) Total Bilirubin 0.7mg/dL (0.2-1.0) Aspartate Amino Transf (AST/SGOT) 223U/L (15-37) Alanine Aminotransferase (ALT/SGPT) 455U/L (14-59) Alkaline Phosphatase 486U/L (46-116) Total Protein 6.6g/dL (6.4-8.2) Albumin 3.1g/dL (3.4-5.0) Albumin/Globulin Ratio 0.9 (1.0-1.7) Allergies: Coded Allergies: peanut (Verified Allergy, Severe, 09/21/16) Medications: Current Medications Medications (Trade) Dose Ordered Sig/Javier Route PRN Reason Start Time Stop Time Status Last Admin Dose Admin Sodium Chloride (Iv Sodium Chloride 0.9% 1000ml Bag) 1,000 ml @ 75 mls/hr [id number] IV 09/20/16 18:30 09/21/16 06:34 Ondansetron HCl (Zofran) 4 mg PRN Q6HRS PRN IV NAUSEA/VOMITING 09/20/16 18:30 09/20/16 21:33 Morphine Sulfate 2 mg PRN Q2HR PRN IV PAIN 09/20/16 18:30 09/21/16 06:33 PE: GEN: NAD HEENT: Atraumatic, PERRLA LUNGS: CTAB HEART: RRR, no murmurs ABD: soft , mildly tender periumbilically, no masses EXTREMITY: No edema SKIN: No rashes, no jaundice NEURO/PSYCH: A & O 3 A/P: A/P: Post lap eleuterio with abnormal IOC and improved last week after surgery- now with recurrent pain and significant increase in LFTS suggests retained CBD stone Plan- CLD then NPO overnight ERCP tomorrow with STEVIE Shrestha MD Sep 21, 2016 10:55
[2016-09-21 11:07] VITALS: BP 110/52
[2016-09-21 12:18] LABS: PROTHROMBIN TIME PATIENT 12.7 SEC (11.7-14.0)
--- NOTE | 2016-09-21 13:16 | PDOC ---
PROGRESS NOTES Chief Complaint Chief Complaint cc: abdominal pain, nausea, elevated bilirubin. s/p recent lap cholecystectomy POD#4 anxiety depression tobacco use History of Present Illness History of Present Illness Patient seen and evaluated this AM. Patient resting comfortably, in no apparent distress. Patient notes diffuse abdominal discomfort, but improved since admission. No nausea or episodes of emesis. d/w nurse about plan of care. Vitals Vitals Vital Signs Date Time Temp Pulse Resp B/P Pulse Ox O2 Delivery O2 Flow Rate FiO2 09/21/16 11:07 98.6 63 16 110/52 94 Room Air 98.6 Physical Exam General: Alert, Oriented X3, Cooperative, No acute distress Heart: Regular rate, Normal S1, Normal S2, No murmurs Lungs: Clear, Other (decreased inspiratory effort. negative chest retractions and/or accessory muscle use. ) Abdomen: Soft, Other (ND, lap sites c/d/i, no erythema of drainage. diffuse tenderness to periumbilicus ) Extremities: No clubbing, No cyanosis Skin: No rashes, No significant lesion Labs LABS Laboratory Tests Test 09/21/16 09:20 09/21/16 11:50 White Blood Count 5.6x10^3/uL (4.0-11.0) Red Blood Count 4.48x10^6/uL (3.50-5.40) Hemoglobin 12.5g/dL (12.0-15.5) Hematocrit 37.3% (36.0-47.0) Mean Corpuscular Volume 83fL (79-100) Mean Corpuscular Hemoglobin 28pg (25-35) Mean Corpuscular Hemoglobin Concent 34g/dL (31-37) Red Cell Distribution Width 14.4% (11.5-14.5) Platelet Count 175x10^3/uL (140-400) Neutrophils (%) (Auto) 62% (31-73) Lymphocytes (%) (Auto) 25% (24-48) Monocytes (%) (Auto) 7% (0-9) Eosinophils (%) (Auto) 7% (0-3) Basophils (%) (Auto) 1% (0-3) Neutrophils # (Auto) 3.5x10^3uL (1.8-7.7) Lymphocytes # (Auto) 1.4x10^3/uL (1.0-4.8) Monocytes # (Auto) 0.4x10^3/uL (0.0-1.1) Eosinophils # (Auto) 0.4x10^3/uL (0.0-0.7) Basophils # (Auto) 0.0x10^3/uL (0.0-0.2) Sodium Level 139mmol/L (136-145) Potassium Level 3.9mmol/L (3.5-5.1) Chloride Level 106mmol/L (98-107) Carbon Dioxide Level 26mmol/L (21-32) Anion Gap 7 (6-14) Blood Urea Nitrogen 5mg/dL (7-20) Creatinine 0.8mg/dL (0.6-1.0) Estimated GFR (Cockcroft-Gault) 91.4 BUN/Creatinine Ratio 6 (6-20) Glucose Level 93mg/dL (70-99) Calcium Level 8.7mg/dL (8.5-10.1) Total Bilirubin 0.7mg/dL (0.2-1.0) Aspartate Amino Transf (AST/SGOT) 223U/L (15-37) Alanine Aminotransferase (ALT/SGPT) 455U/L (14-59) Alkaline Phosphatase 486U/L (46-116) Total Protein 6.6g/dL (6.4-8.2) Albumin 3.1g/dL (3.4-5.0) Albumin/Globulin Ratio 0.9 (1.0-1.7) Prothrombin Time 12.7SEC (11.7-14.0) Prothromb Time International Ratio 1.0 (0.8-1.1) Activated Partial Thromboplast Time 34SEC (24-38) Review of Systems Review of Systems (+) post-operation incisional pain (+) periumbilical abdominal pain. Denies chest pain, palpitations, sob, n/v/d, dizziness/lightheadedness, or fever /chills. Assessment and Plan Assessmemt and Plan Assessment: 1.) abdominal pain with increased LFTs - clinically improved 2.) choledocholithiasis s/p lap cholecystecomy POD #4 - retained stone seen on intraoperative cholangiography 3.) hx of anxiety 4.) hx of depression 5.) current tobacco use Plan: 1.) clear diet, then NPO at midnight, per GI and Surgery. Plan for ERCP with Dr. Aviles tomorrow 2.) continue rocephin, pain regimen, maintenance IVF, and antiemetics 3.) Monitor AM labs 4.) appreciate subspecialty input 5.) tobacco cessation counseling; nicotine patch PRN. Problems: Comment Review of Relevant I have reviewed the following items marissa (where applicable) has been applied. Labs Laboratory Tests Test 09/21/16 09:20 09/21/16 11:50 White Blood Count 5.6x10^3/uL (4.0-11.0) Red Blood Count 4.48x10^6/uL (3.50-5.40) Hemoglobin 12.5g/dL (12.0-15.5) Hematocrit 37.3% (36.0-47.0) Mean Corpuscular Volume 83fL (79-100) Mean Corpuscular Hemoglobin 28pg (25-35) Mean Corpuscular Hemoglobin Concent 34g/dL (31-37) Red Cell Distribution Width 14.4% (11.5-14.5) Platelet Count 175x10^3/uL (140-400) Neutrophils (%) (Auto) 62% (31-73) Lymphocytes (%) (Auto) 25% (24-48) Monocytes (%) (Auto) 7% (0-9) Eosinophils (%) (Auto) 7% (0-3) Basophils (%) (Auto) 1% (0-3) Neutrophils # (Auto) 3.5x10^3uL (1.8-7.7) Lymphocytes # (Auto) 1.4x10^3/uL (1.0-4.8) Monocytes # (Auto) 0.4x10^3/uL (0.0-1.1) Eosinophils # (Auto) 0.4x10^3/uL (0.0-0.7) Basophils # (Auto) 0.0x10^3/uL (0.0-0.2) Sodium Level 139mmol/L (136-145) Potassium Level 3.9mmol/L (3.5-5.1) Chloride Level 106mmol/L (98-107) Carbon Dioxide Level 26mmol/L (21-32) Anion Gap 7 (6-14) Blood Urea Nitrogen 5mg/dL (7-20) Creatinine 0.8mg/dL (0.6-1.0) Estimated GFR (Cockcroft-Gault) 91.4 BUN/Creatinine Ratio 6 (6-20) Glucose Level 93mg/dL (70-99) Calcium Level 8.7mg/dL (8.5-10.1) Total Bilirubin 0.7mg/dL (0.2-1.0) Aspartate Amino Transf (AST/SGOT) 223U/L (15-37) Alanine Aminotransferase (ALT/SGPT) 455U/L (14-59) Alkaline Phosphatase 486U/L (46-116) Total Protein 6.6g/dL (6.4-8.2) Albumin 3.1g/dL (3.4-5.0) Albumin/Globulin Ratio 0.9 (1.0-1.7) Prothrombin Time 12.7SEC (11.7-14.0) Prothromb Time International Ratio 1.0 (0.8-1.1) Activated Partial Thromboplast Time 34SEC (24-38) Laboratory Tests Test 09/21/16 09:20 09/21/16 11:50 White Blood Count 5.6x10^3/uL (4.0-11.0) Red Blood Count 4.48x10^6/uL (3.50-5.40) Hemoglobin 12.5g/dL (12.0-15.5) Hematocrit 37.3% (36.0-47.0) Mean Corpuscular Volume 83fL (79-100) Mean Corpuscular Hemoglobin 28pg (25-35) Mean Corpuscular Hemoglobin Concent 34g/dL (31-37) Red Cell Distribution Width 14.4% (11.5-14.5) Platelet Count 175x10^3/uL (140-400) Neutrophils (%) (Auto) 62% (31-73) Lymphocytes (%) (Auto) 25% (24-48) Monocytes (%) (Auto) 7% (0-9) Eosinophils (%) (Auto) 7% (0-3) Basophils (%) (Auto) 1% (0-3) Neutrophils # (Auto) 3.5x10^3uL (1.8-7.7) Lymphocytes # (Auto) 1.4x10^3/uL (1.0-4.8) Monocytes # (Auto) 0.4x10^3/uL (0.0-1.1) Eosinophils # (Auto) 0.4x10^3/uL (0.0-0.7) Basophils # (Auto) 0.0x10^3/uL (0.0-0.2) Sodium Level 139mmol/L (136-145) Potassium Level 3.9mmol/L (3.5-5.1) Chloride Level 106mmol/L (98-107) Carbon Dioxide Level 26mmol/L (21-32) Anion Gap 7 (6-14) Blood Urea Nitrogen 5mg/dL (7-20) Creatinine 0.8mg/dL (0.6-1.0) Estimated GFR (Cockcroft-Gault) 91.4 BUN/Creatinine Ratio 6 (6-20) Glucose Level 93mg/dL (70-99) Calcium Level 8.7mg/dL (8.5-10.1) Total Bilirubin 0.7mg/dL (0.2-1.0) Aspartate Amino Transf (AST/SGOT) 223U/L (15-37) Alanine Aminotransferase (ALT/SGPT) 455U/L (14-59) Alkaline Phosphatase 486U/L (46-116) Total Protein 6.6g/dL (6.4-8.2) Albumin 3.1g/dL (3.4-5.0) Albumin/Globulin Ratio 0.9 (1.0-1.7) Prothrombin Time 12.7SEC (11.7-14.0) Prothromb Time International Ratio 1.0 (0.8-1.1) Activated Partial Thromboplast Time 34SEC (24-38) Medications Current Medications Sodium Chloride (Iv Sodium Chloride 0.9% 1000ml Bag) 1,000 ml @ 75 mls/hr [id number] IV Last administered on 09/21/16 06:34; Start 09/20/16 at 18:30 Ondansetron HCl (Zofran) 4 mg PRN Q6HRS PRN IV NAUSEA/VOMITING Last administered on 09/20/16 21:33; Start 09/20/16 at 18:30 Morphine Sulfate 2 mg 2 mg PRN Q2HR PRN IV PAIN Last administered on 09/21/16t 11:26; Start 09/20/16 at 18:30 Ceftriaxone Sodium 1 gm/ Sodium Chloride 50 ml @ 100 mls/hr 1X ONCE IV ; Start 09/21/16 at 11:00; Stop 09/21/16 at 11:29; Status Cancel Ceftriaxone Sodium (Rocephin 1gm Ivpb For Omni) 50 ml @ 100 mls/hr 1X PREOP IV ; Start 09/22/16 at 14:00 Active Scripts Active Reported Oxycodone-Acetaminophen 5-325 (Oxycodone Hcl/Acetaminophen) 1 Each Tablet 1 Tab PO PRN PRN Promethazine Hcl 25 Mg Tablet 25 Mg PO PRN PRN Vitals/I & O Vital Sign - Last 24 Hours 09/20/16 09/20/16 09/20/16 09/20/16 15:00 19:00 20:00 23:33 Temp 98.4 98.1 98.1 98.4 98.1 98.1 Pulse 68 82 75 Resp 18 20 18 B/P 117/63 102/68 102/46 Pulse Ox 97 98 98 O2 Delivery Room Air Room Air Room Air Room Air 09/21/16 09/21/16 09/21/16 03:06 07:00 11:07 Temp 98.1 98.1 98.6 98.1 98.1 98.6 Pulse 87 71 63 Resp 20 16 16 B/P 105/50 102/49 110/52 Pulse Ox 97 98 94 O2 Delivery Room Air Room Air Room Air Intake and Output 09/20/16 09/20/16 09/21/16 15:00 23:00 07:00 Intake Total 0 ml 450 ml Balance 0 ml 450 ml BRITTON BENNETT III DO Sep 21, 2016 13:16
--- NOTE | 2016-09-21 16:37 | RAD ---
Hepatobiliary scan Clinical indications: Recent cholecystectomy. Abdominal pain. Possible bile leak. Technique: After IV infusion of 5 mCi of technetium 99m Choletec, anterior planar images of the abdomen were performed up to 60 minutes and then an anterior planar image of the abdomen was performed at 2 hours. Findings: Homogeneous uptake is seen throughout the liver. The gallbladder is surgically absent. Radiotracer activity is seen within the duodenum by 30 minutes. Extravasation of radiotracer activity is seen extending inferiorly from the gallbladder fossa past the inferior tip of the liver and into the peritoneal cavity. On the 2 hour study, there is amorphous radiotracer activity within the peritoneal cavity. Findings are consistent with a bile leak. IMPRESSION: Bile leak.
[2016-09-21 19:00] VITALS: BP 118/63
[2016-09-21] MEDS ORDERED: HYDROmorphone 2 MG/ML VIAL IV PRN (22:00)
[2016-09-21] MEDS ORDERED: KETOROLAC 15 MG/ML VIAL. IV ONE (22:15)
[2016-09-21 23:00] VITALS: BP 126/69
[2016-09-21 23:07] LABS: NEG OBC UR NEG; POS OBC UR POS
[2016-09-22] VITALS (12 sets, daily range): BP systolic 102–132; BP diastolic 52–98
[2016-09-22] MEDS: MORPHINE SULFATE 2 MG/ML DISP.SYRIN. IV PRN ×4 (02:07→11:15)
[2016-09-22 05:36] LABS: BASO % 0 % (0-3); EOS % 2 % (0-3); HEMATOCRIT 35.1 % (36.0-47.0); LYMPH # 1.4 x10^3/uL (1.0-4.8); LYMPH % 17 % (24-48); MEAN CORPUSCULAR HEMOGLOBIN 29 pg (25-35); MEAN CORPUSCULAR HGB CONC 34 g/dL (31-37); MEAN CORPUSCULAR VOLUME 84 fL (79-100); MONO % 7 % (0-9); NEUT % 74 % (31-73); PLATELET COUNT 170 x10^3/uL (140-400); RED CELL DISTRIBUTION WIDTH 14.4 % (11.5-14.5); WHITE BLOOD COUNT 8.5 x10^3/uL (4.0-11.0)
[2016-09-22 05:53] LABS: CALCIUM 8.6 mg/dL (8.5-10.1); CREATININE 0.8 mg/dL (0.6-1.0); GFR 91.4
--- NOTE | 2016-09-22 08:45 | PDOC ---
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 0845: SURGICAL PROGRESS NOTE Subjective ruq, with radiation to chest last night, feels a little better this AM no n/v no fevers Vital Signs Vital Signs Date Time Temp Pulse Resp B/P Pulse Ox O2 Delivery O2 Flow Rate FiO2 09/22/16 07:25 98.8 87 16 125/62 100 Room Air 98.8 I&O Intake and Output 09/22/16 06:59 Intake Total 919 ml Output Total 650 ml Balance 269 ml Intake Oral 240 ml Other 679 ml Output Urine Total 650 ml General: Alert, Oriented X3, Cooperative, No acute distress Abdomen: Soft, Other (moderate RUQ TTP on exam, some guarding ) Labs Laboratory Tests Test 09/21/16 09:20 09/21/16 11:50 09/21/16 22:45 09/22/16 04:40 White Blood Count 5.6x10^3/uL (4.0-11.0) 8.5x10^3/uL (4.0-11.0) Red Blood Count 4.48x10^6/uL (3.50-5.40) 4.20x10^6/uL (3.50-5.40) Hemoglobin 12.5g/dL (12.0-15.5) 12.0g/dL (12.0-15.5) Hematocrit 37.3% (36.0-47.0) 35.1% (36.0-47.0) Mean Corpuscular Volume 83fL (79-100) 84fL (79-100) Mean Corpuscular Hemoglobin 28pg (25-35) 29pg (25-35) Mean Corpuscular Hemoglobin Concent 34g/dL (31-37) 34g/dL (31-37) Red Cell Distribution Width 14.4% (11.5-14.5) 14.4% (11.5-14.5) Platelet Count 175x10^3/uL (140-400) 170x10^3/uL (140-400) Neutrophils (%) (Auto) 62% (31-73) 74% (31-73) Lymphocytes (%) (Auto) 25% (24-48) 17% (24-48) Monocytes (%) (Auto) 7% (0-9) 7% (0-9) Eosinophils (%) (Auto) 7% (0-3) 2% (0-3) Basophils (%) (Auto) 1% (0-3) 0% (0-3) Neutrophils # (Auto) 3.5x10^3uL (1.8-7.7) 6.3x10^3uL (1.8-7.7) Lymphocytes # (Auto) 1.4x10^3/uL (1.0-4.8) 1.4x10^3/uL (1.0-4.8) Monocytes # (Auto) 0.4x10^3/uL (0.0-1.1) 0.6x10^3/uL (0.0-1.1) Eosinophils # (Auto) 0.4x10^3/uL (0.0-0.7) 0.2x10^3/uL (0.0-0.7) Basophils # (Auto) 0.0x10^3/uL (0.0-0.2) 0.0x10^3/uL (0.0-0.2) Sodium Level 139mmol/L (136-145) 139mmol/L (136-145) Potassium Level 3.9mmol/L (3.5-5.1) 4.0mmol/L (3.5-5.1) Chloride Level 106mmol/L (98-107) 106mmol/L (98-107) Carbon Dioxide Level 26mmol/L (21-32) 25mmol/L (21-32) Anion Gap 7 (6-14) 8 (6-14) Blood Urea Nitrogen 5mg/dL (7-20) 9mg/dL (7-20) Creatinine 0.8mg/dL (0.6-1.0) 0.8mg/dL (0.6-1.0) Estimated GFR (Cockcroft-Gault) 91.4 91.4 BUN/Creatinine Ratio 6 (6-20) Glucose Level 93mg/dL (70-99) 83mg/dL (70-99) Calcium Level 8.7mg/dL (8.5-10.1) 8.6mg/dL (8.5-10.1) Total Bilirubin 0.7mg/dL (0.2-1.0) Aspartate Amino Transf (AST/SGOT) 223U/L (15-37) Alanine Aminotransferase (ALT/SGPT) 455U/L (14-59) Alkaline Phosphatase 486U/L (46-116) Total Protein 6.6g/dL (6.4-8.2) Albumin 3.1g/dL (3.4-5.0) Albumin/Globulin Ratio 0.9 (1.0-1.7) Prothrombin Time 12.7SEC (11.7-14.0) Prothromb Time International Ratio 1.0 (0.8-1.1) Activated Partial Thromboplast Time 34SEC (24-38) Urine Test Negative (NEG) Laboratory Tests Test 09/21/16 09:20 09/21/16 11:50 09/21/16 22:45 09/22/16 04:40 White Blood Count 5.6x10^3/uL (4.0-11.0) 8.5x10^3/uL (4.0-11.0) Red Blood Count 4.48x10^6/uL (3.50-5.40) 4.20x10^6/uL (3.50-5.40) Hemoglobin 12.5g/dL (12.0-15.5) 12.0g/dL (12.0-15.5) Hematocrit 37.3% (36.0-47.0) 35.1% (36.0-47.0) Mean Corpuscular Volume 83fL (79-100) 84fL (79-100) Mean Corpuscular Hemoglobin 28pg (25-35) 29pg (25-35) Mean Corpuscular Hemoglobin Concent 34g/dL (31-37) 34g/dL (31-37) Red Cell Distribution Width 14.4% (11.5-14.5) 14.4% (11.5-14.5) Platelet Count 175x10^3/uL (140-400) 170x10^3/uL (140-400) Neutrophils (%) (Auto) 62% (31-73) 74% (31-73) Lymphocytes (%) (Auto) 25% (24-48) 17% (24-48) Monocytes (%) (Auto) 7% (0-9) 7% (0-9) Eosinophils (%) (Auto) 7% (0-3) 2% (0-3) Basophils (%) (Auto) 1% (0-3) 0% (0-3) Neutrophils # (Auto) 3.5x10^3uL (1.8-7.7) 6.3x10^3uL (1.8-7.7) Lymphocytes # (Auto) 1.4x10^3/uL (1.0-4.8) 1.4x10^3/uL (1.0-4.8) Monocytes # (Auto) 0.4x10^3/uL (0.0-1.1) 0.6x10^3/uL (0.0-1.1) Eosinophils # (Auto) 0.4x10^3/uL (0.0-0.7) 0.2x10^3/uL (0.0-0.7) Basophils # (Auto) 0.0x10^3/uL (0.0-0.2) 0.0x10^3/uL (0.0-0.2) Sodium Level 139mmol/L (136-145) 139mmol/L (136-145) Potassium Level 3.9mmol/L (3.5-5.1) 4.0mmol/L (3.5-5.1) Chloride Level 106mmol/L (98-107) 106mmol/L (98-107) Carbon Dioxide Level 26mmol/L (21-32) 25mmol/L (21-32) Anion Gap 7 (6-14) 8 (6-14) Blood Urea Nitrogen 5mg/dL (7-20) 9mg/dL (7-20) Creatinine 0.8mg/dL (0.6-1.0) 0.8mg/dL (0.6-1.0) Estimated GFR (Cockcroft-Gault) 91.4 91.4 BUN/Creatinine Ratio 6 (6-20) Glucose Level 93mg/dL (70-99) 83mg/dL (70-99) Calcium Level 8.7mg/dL (8.5-10.1) 8.6mg/dL (8.5-10.1) Total Bilirubin 0.7mg/dL (0.2-1.0) Aspartate Amino Transf (AST/SGOT) 223U/L (15-37) Alanine Aminotransferase (ALT/SGPT) 455U/L (14-59) Alkaline Phosphatase 486U/L (46-116) Total Protein 6.6g/dL (6.4-8.2) Albumin 3.1g/dL (3.4-5.0) Albumin/Globulin Ratio 0.9 (1.0-1.7) Prothrombin Time 12.7SEC (11.7-14.0) Prothromb Time International Ratio 1.0 (0.8-1.1) Activated Partial Thromboplast Time 34SEC (24-38) Urine Test Negative (NEG) Problem List HIDA + bile leak, I discussed with Zee from GI--ERCP/stent planned today WBC normal, afebrile, she has significant tenderness on exam today will start Zosyn US to check biloma size, d/w Dr Bullard--will eval for possible drain once ERCP done, in case any PTC needed Problems: SHADE AL MD 09/22/16 1343: SURGICAL PROGRESS NOTE Assessment/Plan addendum she was out of her room for ercp when i stopped by to see her. Problems: VIRAL BOGGS FORGING MACHINE OPERATOR September 22, 2016 08:45 SHADE AL MD September 22, 2016 13:43
[2016-09-22] MEDS: IV NORMAL SALINE 1000ML BAG 1,000 ML IV SCH (09:15)
[2016-09-22] MEDS: PIPERACILLIN/TAZOBACTAM 3.375 GM in IV NORMAL SALINE 50ML 50 ML IV SCH ×3 (09:50→23:23)
--- NOTE | 2016-09-22 09:55 | RAD ---
Indication post cholecystectomy. Dilated ducts. Assess for potential biloma. Grayscale imaging was performed. The examination was targeted to the right upper quadrant. Note is made of the cholecystectomy 09/15/2016. Note is made of the hepatobiliary scan yesterday demonstrating findings compatible with a bile leak. The visualized pancreas appears unremarkable. The visualized liver appears normal. The common bile duct is prominent measuring almost 2.2 cm in greatest dimension. Intrahepatic bile ducts also appear prominent. No significant free fluid or definite loculated fluid collection is seen. IMPRESSION: No free fluid or loculated fluid seen. Prominent common bile duct measuring approximately 2.2 cm in greatest dimension. Some intrahepatic biliary ductal dilatation is also seen.
[2016-09-22] MEDS ORDERED: MORPHINE SULFATE 4 MG/ML DISP.SYRIN. IV PRN (10:45)
[2016-09-22] MEDS: IV RINGERS,LACTATED 1000ML 1,000 ML IV SCH (11:15)
[2016-09-22] MEDS ORDERED: IOHEXOL 300 MG/ML 100ML VIAL. ONE (11:34)
[2016-09-22] MEDS ORDERED: LIDOCAINE 2% 100 MG/5 ML SYRINGE. ONE (12:00)
[2016-09-22] MEDS ORDERED: SUCCINYLCHOLINE 200 MG/10 ML VIAL. ONE (12:00)
[2016-09-22] MEDS ORDERED: DEXAMETHASONE SOD PHOS 20 MG/5 ML VIAL. ONE (12:00)
[2016-09-22] MEDS ORDERED: PROPOFOL 10 MG/ML (20ML) VIAL. IV ONE (12:00)
[2016-09-22] MEDS ORDERED: ONDANSETRON PF 4 MG/2 ML VIAL. ONE (12:12)
--- NOTE | 2016-09-22 13:09 | PDOC4 ---
Operative Note Operative Note ERCP With sphincterotomy, stone extraction, and stent placement Meds GOETT/propofol Pre-op dx cbd stone/bile leak Post-op dx cbd stone S/p sphincterotomy/stone extraction S/p 10 FR 7 cm stent placement Plan labs in am advance diet if no post-procedure complication stent removal in 2-3 weeks ENEIDA SWENSON MD September 22, 2016 13:09
--- NOTE | 2016-09-22 13:36 | PDOC ---
PROGRESS NOTES Chief Complaint Chief Complaint cc: abdominal pain, nausea, elevated bilirubin. bile leak post cholecystectomy 1 week ago, s/p ERCP 09/22 with sphinectomy and CBD stone removal and stent placement s/p recent lap cholecystectomy anxiety depression tobacco use low albumin 2/2 liver dz, no malnutrition plan: fu with gi, sx advance diet as per GI ivf on zosyn pain control labs tmr History of Present Illness History of Present Illness severe pain Vitals Vitals Vital Signs Date Time Temp Pulse Resp B/P Pulse Ox O2 Delivery O2 Flow Rate FiO2 09/22/16 13:14 98.6 99 18 137/67 100 Simple Mask 10 98.6 Physical Exam General: Alert, Oriented X3, Cooperative, No acute distress Heart: Regular rate, Normal S1, Normal S2, No murmurs Lungs: Clear, Other (decreased inspiratory effort. negative chest retractions and/or accessory muscle use. ) Abdomen: Soft, Other (moderate RUQ TTP on exam, some guarding ) Extremities: No clubbing, No cyanosis Skin: No rashes, No significant lesion Labs LABS Laboratory Tests Test 09/21/16 22:45 09/22/16 04:40 Urine Test Negative (NEG) White Blood Count 8.5x10^3/uL (4.0-11.0) Red Blood Count 4.20x10^6/uL (3.50-5.40) Hemoglobin 12.0g/dL (12.0-15.5) Hematocrit 35.1% (36.0-47.0) Mean Corpuscular Volume 84fL (79-100) Mean Corpuscular Hemoglobin 29pg (25-35) Mean Corpuscular Hemoglobin Concent 34g/dL (31-37) Red Cell Distribution Width 14.4% (11.5-14.5) Platelet Count 170x10^3/uL (140-400) Neutrophils (%) (Auto) 74% (31-73) Lymphocytes (%) (Auto) 17% (24-48) Monocytes (%) (Auto) 7% (0-9) Eosinophils (%) (Auto) 2% (0-3) Basophils (%) (Auto) 0% (0-3) Neutrophils # (Auto) 6.3x10^3uL (1.8-7.7) Lymphocytes # (Auto) 1.4x10^3/uL (1.0-4.8) Monocytes # (Auto) 0.6x10^3/uL (0.0-1.1) Eosinophils # (Auto) 0.2x10^3/uL (0.0-0.7) Basophils # (Auto) 0.0x10^3/uL (0.0-0.2) Sodium Level 139mmol/L (136-145) Potassium Level 4.0mmol/L (3.5-5.1) Chloride Level 106mmol/L (98-107) Carbon Dioxide Level 25mmol/L (21-32) Anion Gap 8 (6-14) Blood Urea Nitrogen 9mg/dL (7-20) Creatinine 0.8mg/dL (0.6-1.0) Estimated GFR (Cockcroft-Gault) 91.4 Glucose Level 83mg/dL (70-99) Calcium Level 8.6mg/dL (8.5-10.1) Review of Systems Review of Systems no fever, chills, sob or chest pain Comment Review of Relevant I have reviewed the following items marissa (where applicable) has been applied. Labs Laboratory Tests Test 09/21/16 09:20 09/21/16 11:50 09/21/16 22:45 09/22/16 04:40 White Blood Count 5.6x10^3/uL (4.0-11.0) 8.5x10^3/uL (4.0-11.0) Red Blood Count 4.48x10^6/uL (3.50-5.40) 4.20x10^6/uL (3.50-5.40) Hemoglobin 12.5g/dL (12.0-15.5) 12.0g/dL (12.0-15.5) Hematocrit 37.3% (36.0-47.0) 35.1% (36.0-47.0) Mean Corpuscular Volume 83fL (79-100) 84fL (79-100) Mean Corpuscular Hemoglobin 28pg (25-35) 29pg (25-35) Mean Corpuscular Hemoglobin Concent 34g/dL (31-37) 34g/dL (31-37) Red Cell Distribution Width 14.4% (11.5-14.5) 14.4% (11.5-14.5) Platelet Count 175x10^3/uL (140-400) 170x10^3/uL (140-400) Neutrophils (%) (Auto) 62% (31-73) 74% (31-73) Lymphocytes (%) (Auto) 25% (24-48) 17% (24-48) Monocytes (%) (Auto) 7% (0-9) 7% (0-9) Eosinophils (%) (Auto) 7% (0-3) 2% (0-3) Basophils (%) (Auto) 1% (0-3) 0% (0-3) Neutrophils # (Auto) 3.5x10^3uL (1.8-7.7) 6.3x10^3uL (1.8-7.7) Lymphocytes # (Auto) 1.4x10^3/uL (1.0-4.8) 1.4x10^3/uL (1.0-4.8) Monocytes # (Auto) 0.4x10^3/uL (0.0-1.1) 0.6x10^3/uL (0.0-1.1) Eosinophils # (Auto) 0.4x10^3/uL (0.0-0.7) 0.2x10^3/uL (0.0-0.7) Basophils # (Auto) 0.0x10^3/uL (0.0-0.2) 0.0x10^3/uL (0.0-0.2) Sodium Level 139mmol/L (136-145) 139mmol/L (136-145) Potassium Level 3.9mmol/L (3.5-5.1) 4.0mmol/L (3.5-5.1) Chloride Level 106mmol/L (98-107) 106mmol/L (98-107) Carbon Dioxide Level 26mmol/L (21-32) 25mmol/L (21-32) Anion Gap 7 (6-14) 8 (6-14) Blood Urea Nitrogen 5mg/dL (7-20) 9mg/dL (7-20) Creatinine 0.8mg/dL (0.6-1.0) 0.8mg/dL (0.6-1.0) Estimated GFR (Cockcroft-Gault) 91.4 91.4 BUN/Creatinine Ratio 6 (6-20) Glucose Level 93mg/dL (70-99) 83mg/dL (70-99) Calcium Level 8.7mg/dL (8.5-10.1) 8.6mg/dL (8.5-10.1) Total Bilirubin 0.7mg/dL (0.2-1.0) Aspartate Amino Transf (AST/SGOT) 223U/L (15-37) Alanine Aminotransferase (ALT/SGPT) 455U/L (14-59) Alkaline Phosphatase 486U/L (46-116) Total Protein 6.6g/dL (6.4-8.2) Albumin 3.1g/dL (3.4-5.0) Albumin/Globulin Ratio 0.9 (1.0-1.7) Prothrombin Time 12.7SEC (11.7-14.0) Prothromb Time International Ratio 1.0 (0.8-1.1) Activated Partial Thromboplast Time 34SEC (24-38) Urine Test Negative (NEG) Laboratory Tests Test 09/21/16 22:45 09/22/16 04:40 Urine Test Negative (NEG) White Blood Count 8.5x10^3/uL (4.0-11.0) Red Blood Count 4.20x10^6/uL (3.50-5.40) Hemoglobin 12.0g/dL (12.0-15.5) Hematocrit 35.1% (36.0-47.0) Mean Corpuscular Volume 84fL (79-100) Mean Corpuscular Hemoglobin 29pg (25-35) Mean Corpuscular Hemoglobin Concent 34g/dL (31-37) Red Cell Distribution Width 14.4% (11.5-14.5) Platelet Count 170x10^3/uL (140-400) Neutrophils (%) (Auto) 74% (31-73) Lymphocytes (%) (Auto) 17% (24-48) Monocytes (%) (Auto) 7% (0-9) Eosinophils (%) (Auto) 2% (0-3) Basophils (%) (Auto) 0% (0-3) Neutrophils # (Auto) 6.3x10^3uL (1.8-7.7) Lymphocytes # (Auto) 1.4x10^3/uL (1.0-4.8) Monocytes # (Auto) 0.6x10^3/uL (0.0-1.1) Eosinophils # (Auto) 0.2x10^3/uL (0.0-0.7) Basophils # (Auto) 0.0x10^3/uL (0.0-0.2) Sodium Level 139mmol/L (136-145) Potassium Level 4.0mmol/L (3.5-5.1) Chloride Level 106mmol/L (98-107) Carbon Dioxide Level 25mmol/L (21-32) Anion Gap 8 (6-14) Blood Urea Nitrogen 9mg/dL (7-20) Creatinine 0.8mg/dL (0.6-1.0) Estimated GFR (Cockcroft-Gault) 91.4 Glucose Level 83mg/dL (70-99) Calcium Level 8.6mg/dL (8.5-10.1) Medications Current Medications Sodium Chloride (Iv Sodium Chloride 0.9% 1000ml Bag) 1,000 ml @ 75 mls/hr [id number] IV Last administered on 09/22/16 09:15; Start 09/20/16 at 18:30 Ondansetron HCl (Zofran) 4 mg PRN Q6HRS PRN IV NAUSEA/VOMITING Last administered on 09/20/16 21:33; Start 09/20/16 at 18:30 Morphine Sulfate 2 mg 2 mg PRN Q2HR PRN IV PAIN Last administered on 09/22/16 11:15; Start 09/20/16 at 18:30 Ceftriaxone Sodium 1 gm/ Sodium Chloride 50 ml @ 100 mls/hr 1X ONCE IV ; Start 09/21/16 at 11:00; Stop 09/21/16 at 11:29; Status Cancel Ceftriaxone Sodium (Rocephin 1gm Ivpb For Omni) 50 ml @ 100 mls/hr 1X PREOP IV Last administered on 09/22/16 12:34; Start 09/22/16 at 14:00 Ketorolac Tromethamine (Toradol) 15 mg 1X ONCE IV Last administered on 4/30/ 17at 22:41; Start 09/21/16 at 22:15; Stop 09/21/16 at 22:16; Status DC Hydromorphone HCl 0.5 mg 0.5 mg PRN Q2HR PRN IV SEVERE PAIN; Start 09/21/16 at 22:00 Piperacillin Sod/ Tazobactam Sod/ Sodium Chloride (Zosyn/Iv Sodium Chloride 0.9 % 50ml) 50 ml @ 100 mls/hr Q6HRS IV Last administered on 09/22/16t 09:50; Start 09/22/16 at 09:00 Hydromorphone HCl (Dilaudid) 2 mg PRN Q4HRS PRN IV PAIN; Start 09/22/16 at 10:45 Morphine Sulfate 4 mg 4 mg PRN Q2HR PRN IV PAIN; Start 09/22/16 at 10:45 Lactated Ringer's 1,000 ml @ 75 mls/hr [id number] IV ; Start 09/22/16 at 11:15 Ceftriaxone Sodium (Rocephin 1gm Ivpb For Omni) 50 ml @ As Directed STK-MED ONCE IV ; Start 09/22/16 at 11:17; Stop 09/22/16 at 11:18; Status DC Iohexol (Omnipaque 300 Mg/ml) 100 ml STK-MED ONCE .ROUTE ; Start 09/22/16 at 11: 34; Stop 09/22/16 at 11:35; Status DC Ondansetron HCl (Zofran) 4 mg STK-MED ONCE .ROUTE ; Start 09/22/16 at 12:12; Stop 09/22/16 at 12:13; Status DC Active Scripts Active Reported Oxycodone-Acetaminophen 5-325 (Oxycodone Hcl/Acetaminophen) 1 Each Tablet 1 Tab PO PRN PRN Promethazine Hcl 25 Mg Tablet 25 Mg PO PRN PRN Vitals/I & O Vital Sign - Last 24 Hours 09/21/16 09/21/16 09/21/16 09/21/16 19:00 20:00 21:13 23:00 Temp 99.3 98.0 99.3 98.0 Pulse 80 111 Resp 18 14 18 B/P 118/63 126/69 Pulse Ox 99 97 O2 Delivery Room Air Room Air Room Air Room Air 5/1/09/22/16 09/22/16 09/22/16 02:07 03:00 04:16 04:50 Temp 98.1 98.1 Pulse 69 Resp 16 16 B/P 115/98 Pulse Ox 96 O2 Delivery Room Air Room Air Room Air Room Air 09/22/16 09/22/16 09/22/16 09/22/16 07:25 09:15 10:44 11:15 Temp 98.8 98.0 98.8 98.0 Pulse 87 105 Resp 18 20 B/P 125/62 132/67 Pulse Ox 100 93 100 O2 Delivery Room Air Room Air Room Air Room Air 09/22/16 09/22/16 09/22/16 11:20 11:28 13:14 Temp 100.8 98.6 100.8 98.6 Pulse 79 99 Resp 18 B/P 137/67 Pulse Ox 100 100 O2 Delivery Room Air Simple Mask O2 Flow Rate 10 Intake and Output 09/21/16 09/21/16 09/22/16 15:00 23:00 07:00 Intake Total 240 ml 679 ml Output Total 650 ml Balance -410 ml 679 ml SNEHA MOELLER MD September 22, 2016 13:36
--- NOTE | 2016-09-22 13:50 | RAD ---
Indication bile leak. For members of the Department of gastroenterology fluoroscopy was provided. 5 fluoroscopic spot images were obtained. Images were obtained primarily for guidance as opposed to primary diagnostic purposes. The final film demonstrates placement of a biliary stent. The ERCP notes indicate that a sphincterotomy was performed as well as stone removal. Fluoroscopy time associated with the procedure was 2 minutes 39 seconds
[2016-09-22] MEDS: HYDROmorphone 2 MG/ML VIAL IV PRN ×2 (14:49→20:12)
[2016-09-22] MEDS: diphenhydrAMINE 50 MG/ML VIAL IVP PRN (23:23)
[2016-09-23] MEDS: HYDROmorphone 2 MG/ML VIAL IV PRN ×6 (00:15→20:49)
[2016-09-23] MEDS: IV RINGERS,LACTATED 1000ML 1,000 ML IV SCH ×3 (01:08→17:55)
[2016-09-23 03:35] VITALS: BP 111/65
[2016-09-23 04:55] LABS: BASO % 0 % (0-3); EOS % 0 % (0-3); HEMOGLOBIN 12.2 g/dL (12.0-15.5); LYMPH % 10 % (24-48); MEAN CORPUSCULAR HEMOGLOBIN 28 pg (25-35); MEAN CORPUSCULAR HGB CONC 33 g/dL (31-37); MEAN CORPUSCULAR VOLUME 85 fL (79-100); MONO % 8 % (0-9); NEUT % 82 % (31-73); PLATELET COUNT 174 x10^3/uL (140-400); RED BLOOD COUNT 4.34 x10^6/uL (3.50-5.40); RED CELL DISTRIBUTION WIDTH 14.5 % (11.5-14.5); WHITE BLOOD COUNT 9.9 x10^3/uL (4.0-11.0)
[2016-09-23 05:38] LABS: ALBUMIN/GLOBULIN RATIO 0.9 (1.0-1.7); CALCIUM 8.4 mg/dL (8.5-10.1); CREATININE 0.7 mg/dL (0.6-1.0); GFR 105.6; POTASSIUM 3.7 mmol/L (3.5-5.1); TOTAL BILIRUBIN 0.8 mg/dL (0.2-1.0); TOTAL PROTEIN 6.5 g/dL (6.4-8.2)
--- NOTE | 2016-09-23 06:18 | OP ---
DATE OF SURGERY: 09/22/2016 PROCEDURE PERFORMED: Endoscopic retrograde cholangiopancreatography with sphincterotomy and stone extraction and stent placement. PREOPERATIVE DIAGNOSES: Choledocholithiasis and bile leak. POSTOPERATIVE DIAGNOSES: Choledocholithiasis and bile leak, status post stone extraction, status post a 10-[place] 7 cm stent placement. DESCRIPTION OF PROCEDURE: After the risks and benefits of procedure including the risk of hemorrhage or perforation at the time of operation were discussed with the patient and family, informed consent was obtained. The patient was then placed in the left lateral decubitus position. Side-view endoscope was then advanced to the esophagus, stomach, first and second portions of the duodenum. After the patient was intubated, major papilla was identified. There was no evidence of ____ within the stomach and no evidence of pathology was noted within the esophagus with limited view. 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 Cannulation with a wire of the pancreatic duct was obtained. No pancreatograms were performed. Subsequently, using a sphincterotome and a wire, cannulation of the common bile duct was obtained with retained common duct stone, which was known previously from previous cholangiogram. Sphincterotomy was then performed with minimal periampullary bleeding. Balloon sweep cholangiogram was then performed with extraction of a large oblong stone. Subsequently, a 10-[place] 7 cm stent was then placed with her history of bile leak on PIPIDA scan. She will be observed overnight for any evidence of complications prior to advancing a diet. ENEIDA SWENSON MD DR: JULIAN/shelia JOB#: [id number] / [id number] SHADE Murcia MD
[2016-09-23] MEDS: PIPERACILLIN/TAZOBACTAM 3.375 GM in IV NORMAL SALINE 50ML 50 ML IV SCH ×3 (06:21→17:52)
[2016-09-23 07:00] VITALS: BP 109/55
--- NOTE | 2016-09-23 10:11 | PDOC ---
Provider Note Provider Note less ruq pain afeb vss abd soft mild ruq tenderness inc cdi a/p choledocholithiasis with subsequent bile leak. s/p ercp, stone retrieval and stent placement diet and dc planning per gi. SHADE AL MD September 23, 2016 10:11
[2016-09-23 11:00] VITALS: BP 108/62
--- NOTE | 2016-09-23 11:40 | PDOC ---
Subjective: Subjective: Epigastric and RUQ pain, says stable compared to yesterday, maybe a little better although hurts to move. Tolerated clears for breakfast - pain did not increase after eating. No n/v. Objective: Vital Signs: Vital Signs Date Time Temp Pulse Resp B/P Pulse Ox O2 Delivery O2 Flow Rate FiO2 09/23/16 08:26 16 Room Air 09/23/16 07:00 98.1 90 109/55 99 98.1 09/22/16 13:14 10 Labs: Laboratory Tests Test 09/23/16 04:31 White Blood Count 9.9x10^3/uL Red Blood Count 4.34x10^6/uL Hemoglobin 12.2g/dL Hematocrit 37.0% Mean Corpuscular Volume 85fL Mean Corpuscular Hemoglobin 28pg Mean Corpuscular Hemoglobin Concent 33g/dL Red Cell Distribution Width 14.5% Platelet Count 174x10^3/uL Neutrophils (%) (Auto) 82% Lymphocytes (%) (Auto) 10% Monocytes (%) (Auto) 8% Eosinophils (%) (Auto) 0% Basophils (%) (Auto) 0% Neutrophils # (Auto) 8.1x10^3uL Lymphocytes # (Auto) 1.0x10^3/uL Monocytes # (Auto) 0.7x10^3/uL Eosinophils # (Auto) 0.0x10^3/uL Basophils # (Auto) 0.0x10^3/uL Sodium Level 139mmol/L Potassium Level 3.7mmol/L Chloride Level 105mmol/L Carbon Dioxide Level 25mmol/L Anion Gap 9 Blood Urea Nitrogen 11mg/dL Creatinine 0.7mg/dL Estimated GFR (Cockcroft-Gault) 105.6 BUN/Creatinine Ratio 16 Glucose Level 95mg/dL Calcium Level 8.4mg/dL Total Bilirubin 0.8mg/dL Aspartate Amino Transf (AST/SGOT) 43U/L Alanine Aminotransferase (ALT/SGPT) 235U/L Alkaline Phosphatase 364U/L Total Protein 6.5g/dL Albumin 3.0g/dL Albumin/Globulin Ratio 0.9 Amylase Level 422U/L Lipase 4644U/L Imaging: ERCP 09/22/16: sphincterotomy, stone extraction, and stent placement. PE: GEN: NAD, was asleep LUNGS: CTAB HEART: RRR ABD: RUQ and epigastric tenderness NEURO/PSYCH: A & O 3 A/P: Choledocholithiasis, bile leak -s/p ERCP w/ sphincterotomy, stone extraction, stent placement 09/22/16 -elevated amylase and lipase this a.m., LFTs better, ongoing RUQ/epigastric pain -- D/w Dr. Aviles - missy to continue clears. Recheck lipase in a.m. JONATHAN BLAIR September 23, 2016 11:40
--- NOTE | 2016-09-23 13:30 | PDOC ---
PROGRESS NOTES Chief Complaint Chief Complaint cc: abdominal pain, nausea, elevated bilirubin. bile leak post cholecystectomy 1 week ago, s/p ERCP 09/22 with sphinectomy and CBD stone removal and stent placement s/p recent lap cholecystectomy anxiety depression tobacco use low albumin 2/2 liver dz, no malnutrition elevated lipase post ERCP plan: fu with gi, sx advance diet as per GI ivf increase to 125cc/h, on clear liquid on zosyn pain control labs tmr, lipase tmr History of Present Illness History of Present Illness severe abd pain if move, otherwise ok with pain meds tolerate clear liquid post ERCP on 09/22 high lipase post ERCP, LFT better Vitals Vitals Vital Signs Date Time Temp Pulse Resp B/P Pulse Ox O2 Delivery O2 Flow Rate FiO2 09/23/16 12:31 16 Room Air 09/23/16 11:00 98.7 99 108/62 99 98.7 09/22/16 13:14 10 Physical Exam General: Alert, Oriented X3, Cooperative, No acute distress Heart: Regular rate, Normal S1, Normal S2, No murmurs Lungs: Clear, Other (decreased inspiratory effort. negative chest retractions and/or accessory muscle use. ) Abdomen: Soft, Other (moderate RUQ TTP on exam, some guarding ) Extremities: No clubbing, No cyanosis Skin: No rashes, No significant lesion Labs LABS Laboratory Tests Test 09/23/16 04:31 White Blood Count 9.9x10^3/uL (4.0-11.0) Red Blood Count 4.34x10^6/uL (3.50-5.40) Hemoglobin 12.2g/dL (12.0-15.5) Hematocrit 37.0% (36.0-47.0) Mean Corpuscular Volume 85fL (79-100) Mean Corpuscular Hemoglobin 28pg (25-35) Mean Corpuscular Hemoglobin Concent 33g/dL (31-37) Red Cell Distribution Width 14.5% (11.5-14.5) Platelet Count 174x10^3/uL (140-400) Neutrophils (%) (Auto) 82% (31-73) Lymphocytes (%) (Auto) 10% (24-48) Monocytes (%) (Auto) 8% (0-9) Eosinophils (%) (Auto) 0% (0-3) Basophils (%) (Auto) 0% (0-3) Neutrophils # (Auto) 8.1x10^3uL (1.8-7.7) Lymphocytes # (Auto) 1.0x10^3/uL (1.0-4.8) Monocytes # (Auto) 0.7x10^3/uL (0.0-1.1) Eosinophils # (Auto) 0.0x10^3/uL (0.0-0.7) Basophils # (Auto) 0.0x10^3/uL (0.0-0.2) Sodium Level 139mmol/L (136-145) Potassium Level 3.7mmol/L (3.5-5.1) Chloride Level 105mmol/L (98-107) Carbon Dioxide Level 25mmol/L (21-32) Anion Gap 9 (6-14) Blood Urea Nitrogen 11mg/dL (7-20) Creatinine 0.7mg/dL (0.6-1.0) Estimated GFR (Cockcroft-Gault) 105.6 BUN/Creatinine Ratio 16 (6-20) Glucose Level 95mg/dL (70-99) Calcium Level 8.4mg/dL (8.5-10.1) Total Bilirubin 0.8mg/dL (0.2-1.0) Aspartate Amino Transf (AST/SGOT) 43U/L (15-37) Alanine Aminotransferase (ALT/SGPT) 235U/L (14-59) Alkaline Phosphatase 364U/L (46-116) Total Protein 6.5g/dL (6.4-8.2) Albumin 3.0g/dL (3.4-5.0) Albumin/Globulin Ratio 0.9 (1.0-1.7) Amylase Level 422U/L (25-115) Lipase 4644U/L (73-393) Review of Systems Review of Systems No fever, chills, sob or chest pain Assessment and Plan Assessmemt and Plan Problems Medical Problems: (1) Cholelithiasis Status: Acute Problems: Comment Review of Relevant I have reviewed the following items marissa (where applicable) has been applied. Labs Laboratory Tests Test 09/21/16 22:45 09/22/16 04:40 09/23/16 04:31 Urine Test Negative (NEG) White Blood Count 8.5x10^3/uL (4.0-11.0) 9.9x10^3/uL (4.0-11.0) Red Blood Count 4.20x10^6/uL (3.50-5.40) 4.34x10^6/uL (3.50-5.40) Hemoglobin 12.0g/dL (12.0-15.5) 12.2g/dL (12.0-15.5) Hematocrit 35.1% (36.0-47.0) 37.0% (36.0-47.0) Mean Corpuscular Volume 84fL (79-100) 85fL (79-100) Mean Corpuscular Hemoglobin 29pg (25-35) 28pg (25-35) Mean Corpuscular Hemoglobin Concent 34g/dL (31-37) 33g/dL (31-37) Red Cell Distribution Width 14.4% (11.5-14.5) 14.5% (11.5-14.5) Platelet Count 170x10^3/uL (140-400) 174x10^3/uL (140-400) Neutrophils (%) (Auto) 74% (31-73) 82% (31-73) Lymphocytes (%) (Auto) 17% (24-48) 10% (24-48) Monocytes (%) (Auto) 7% (0-9) 8% (0-9) Eosinophils (%) (Auto) 2% (0-3) 0% (0-3) Basophils (%) (Auto) 0% (0-3) 0% (0-3) Neutrophils # (Auto) 6.3x10^3uL (1.8-7.7) 8.1x10^3uL (1.8-7.7) Lymphocytes # (Auto) 1.4x10^3/uL (1.0-4.8) 1.0x10^3/uL (1.0-4.8) Monocytes # (Auto) 0.6x10^3/uL (0.0-1.1) 0.7x10^3/uL (0.0-1.1) Eosinophils # (Auto) 0.2x10^3/uL (0.0-0.7) 0.0x10^3/uL (0.0-0.7) Basophils # (Auto) 0.0x10^3/uL (0.0-0.2) 0.0x10^3/uL (0.0-0.2) Sodium Level 139mmol/L (136-145) 139mmol/L (136-145) Potassium Level 4.0mmol/L (3.5-5.1) 3.7mmol/L (3.5-5.1) Chloride Level 106mmol/L (98-107) 105mmol/L (98-107) Carbon Dioxide Level 25mmol/L (21-32) 25mmol/L (21-32) Anion Gap 8 (6-14) 9 (6-14) Blood Urea Nitrogen 9mg/dL (7-20) 11mg/dL (7-20) Creatinine 0.8mg/dL (0.6-1.0) 0.7mg/dL (0.6-1.0) Estimated GFR (Cockcroft-Gault) 91.4 105.6 Glucose Level 83mg/dL (70-99) 95mg/dL (70-99) Calcium Level 8.6mg/dL (8.5-10.1) 8.4mg/dL (8.5-10.1) BUN/Creatinine Ratio 16 (6-20) Total Bilirubin 0.8mg/dL (0.2-1.0) Aspartate Amino Transf (AST/SGOT) 43U/L (15-37) Alanine Aminotransferase (ALT/SGPT) 235U/L (14-59) Alkaline Phosphatase 364U/L (46-116) Total Protein 6.5g/dL (6.4-8.2) Albumin 3.0g/dL (3.4-5.0) Albumin/Globulin Ratio 0.9 (1.0-1.7) Amylase Level 422U/L (25-115) Lipase 4644U/L (73-393) Laboratory Tests Test 09/23/16 04:31 White Blood Count 9.9x10^3/uL (4.0-11.0) Red Blood Count 4.34x10^6/uL (3.50-5.40) Hemoglobin 12.2g/dL (12.0-15.5) Hematocrit 37.0% (36.0-47.0) Mean Corpuscular Volume 85fL (79-100) Mean Corpuscular Hemoglobin 28pg (25-35) Mean Corpuscular Hemoglobin Concent 33g/dL (31-37) Red Cell Distribution Width 14.5% (11.5-14.5) Platelet Count 174x10^3/uL (140-400) Neutrophils (%) (Auto) 82% (31-73) Lymphocytes (%) (Auto) 10% (24-48) Monocytes (%) (Auto) 8% (0-9) Eosinophils (%) (Auto) 0% (0-3) Basophils (%) (Auto) 0% (0-3) Neutrophils # (Auto) 8.1x10^3uL (1.8-7.7) Lymphocytes # (Auto) 1.0x10^3/uL (1.0-4.8) Monocytes # (Auto) 0.7x10^3/uL (0.0-1.1) Eosinophils # (Auto) 0.0x10^3/uL (0.0-0.7) Basophils # (Auto) 0.0x10^3/uL (0.0-0.2) Sodium Level 139mmol/L (136-145) Potassium Level 3.7mmol/L (3.5-5.1) Chloride Level 105mmol/L (98-107) Carbon Dioxide Level 25mmol/L (21-32) Anion Gap 9 (6-14) Blood Urea Nitrogen 11mg/dL (7-20) Creatinine 0.7mg/dL (0.6-1.0) Estimated GFR (Cockcroft-Gault) 105.6 BUN/Creatinine Ratio 16 (6-20) Glucose Level 95mg/dL (70-99) Calcium Level 8.4mg/dL (8.5-10.1) Total Bilirubin 0.8mg/dL (0.2-1.0) Aspartate Amino Transf (AST/SGOT) 43U/L (15-37) Alanine Aminotransferase (ALT/SGPT) 235U/L (14-59) Alkaline Phosphatase 364U/L (46-116) Total Protein 6.5g/dL (6.4-8.2) Albumin 3.0g/dL (3.4-5.0) Albumin/Globulin Ratio 0.9 (1.0-1.7) Amylase Level 422U/L (25-115) Lipase 4644U/L (73-393) Medications Current Medications Sodium Chloride (Iv Sodium Chloride 0.9% 1000ml Bag) 1,000 ml @ 75 mls/hr [id number] IV Last administered on 09/22/16 09:15; Start 09/20/16 at 18:30; Stop 09/22/16 at 13:55; Status DC Ondansetron HCl (Zofran) 4 mg PRN Q6HRS PRN IV NAUSEA/VOMITING Last administered on 09/20/16 21:33; Start 09/20/16 at 18:30 Morphine Sulfate 2 mg 2 mg PRN Q2HR PRN IV PAIN Last administered on 09/22/16 11:15; Start 09/20/16 at 18:30; Stop 09/22/16 at 13:54; Status DC Ceftriaxone Sodium 1 gm/ Sodium Chloride 50 ml @ 100 mls/hr 1X ONCE IV ; Start 09/21/16 at 11:00; Stop 09/21/16 at 11:29; Status Cancel Ceftriaxone Sodium (Rocephin 1gm Ivpb For Omni) 50 ml @ 100 mls/hr 1X PREOP IV Last administered on 09/22/16 12:34; Start 09/22/16 at 14:00 Ketorolac Tromethamine (Toradol) 15 mg 1X ONCE IV Last administered on 22:41; Start 09/21/16 at 22:15; Stop 09/21/16 at 22:16; Status DC Hydromorphone HCl 0.5 mg 0.5 mg PRN Q2HR PRN IV SEVERE PAIN; Start 09/21/16 at 22:00; Stop 09/22/16 at 13:55; Status DC Piperacillin Sod/ Tazobactam Sod/ Sodium Chloride (Zosyn/Iv Sodium Chloride 0.9 % 50ml) 50 ml @ 100 mls/hr Q6HRS IV Last administered on 09/23/16 12:29; Start 09/22/16 at 09:00 Hydromorphone HCl (Dilaudid) 2 mg PRN Q4HRS PRN IV PAIN Last administered on 12:31; Start 09/22/16 at 10:45 Morphine Sulfate 4 mg 4 mg PRN Q2HR PRN IV PAIN Last administered on 09/22/16 18:09; Start 09/22/16 at 10:45 Lactated Ringer's 1,000 ml @ 125 mls/hr Q8H IV Last administered on 09/23/16 03:29; Start 09/22/16 at 11:15 Ceftriaxone Sodium (Rocephin 1gm Ivpb For Omni) 50 ml @ As Directed STK-MED ONCE IV ; Start 09/22/16 at 11:17; Stop 09/22/16 at 11:18; Status DC Iohexol (Omnipaque 300 Mg/ml) 100 ml STK-MED ONCE .ROUTE ; Start 09/22/16 at 11: 34; Stop 09/22/16 at 11:35; Status DC Ondansetron HCl (Zofran) 4 mg STK-MED ONCE .ROUTE ; Start 09/22/16 at 12:12; Stop 09/22/16 at 12:13; Status DC Acetaminophen (Tylenol) 650 mg PRN Q6HRS PRN PO FEVER; Start 09/22/16 at 13:45 Diphenhydramine HCl (Benadryl) 25 mg PRN Q6HRS PRN IVP ITCHING Last administered on 09/22/16 23:23; Start 09/22/16 at 22:45 Active Scripts Active Reported Oxycodone-Acetaminophen 5-325 (Oxycodone Hcl/Acetaminophen) 1 Each Tablet 1 Tab PO PRN PRN Promethazine Hcl 25 Mg Tablet 25 Mg PO PRN PRN Vitals/I & O Vital Sign - Last 24 Hours 09/22/16 09/22/16 09/22/16 09/22/16 13:43 14:49 15:00 15:15 Temp 99.7 99.7 Pulse 71 62 62 Resp 18 16 18 B/P 125/61 113/58 104/52 Pulse Ox 97 96 95 O2 Delivery Room Air Room Air Room Air Room Air 09/22/16 09/22/16 09/22/16 09/22/16 15:30 15:45 16:00 16:30 Pulse 60 60 60 66 B/P 105/55 102/54 106/54 102/54 Pulse Ox 94 95 95 95 O2 Delivery Room Air Room Air Room Air Room Air 09/22/16 09/22/16 09/22/16 09/22/16 17:00 18:00 18:09 18:40 Pulse 79 74 Resp 16 16 B/P 116/76 118/56 Pulse Ox 98 96 O2 Delivery Room Air Room Air Room Air Room Air 09/22/16 09/22/16 09/22/16 09/23/16 19:52 20:10 20:12 00:15 Temp 98.4 98.4 Pulse 87 Resp 20 20 20 B/P 117/63 Pulse Ox 98 98 98 O2 Delivery Room Air Room Air Room Air Room Air 09/23/16 09/23/16 09/23/16 09/23/16 03:35 04:13 04:44 07:00 Temp 98.1 98.1 98.1 98.1 Pulse 78 90 Resp 18 20 16 B/P 111/65 109/55 Pulse Ox 97 97 97 99 O2 Delivery Room Air Room Air 09/23/16 09/23/16 09/23/16 09/23/16 08:10 08:26 09:00 11:00 Temp 98.7 98.7 Pulse 99 Resp 16 B/P 108/62 Pulse Ox 99 O2 Delivery Room Air Room Air Room Air Room Air 09/23/16 12:31 Resp 16 O2 Delivery Room Air Intake and Output 09/22/16 09/22/16 09/23/16 15:00 23:00 07:00 Intake Total 750 ml 0 ml 1870 ml Output Total 1200 ml Balance 750 ml 0 ml 670 ml SNEHA MOELLER MD September 23, 2016 13:30
[2016-09-23 15:00] VITALS: BP 115/59
[2016-09-23 19:00] VITALS: BP 115/55
[2016-09-23] MEDS: diphenhydrAMINE 50 MG/ML VIAL IVP PRN (19:17)
[2016-09-23 23:19] VITALS: BP 110/55
[2016-09-24] MEDS: PIPERACILLIN/TAZOBACTAM 3.375 GM in IV NORMAL SALINE 50ML 50 ML IV SCH ×4 (00:02→18:32)
[2016-09-24] MEDS: HYDROmorphone 2 MG/ML VIAL IV PRN ×5 (00:51→20:40)
[2016-09-24] MEDS: IV RINGERS,LACTATED 1000ML 1,000 ML IV SCH ×3 (02:36→20:41)
[2016-09-24] MEDS: diphenhydrAMINE 50 MG/ML VIAL IVP PRN ×2 (03:03→15:55)
[2016-09-24 03:23] VITALS: BP 117/66
[2016-09-24 04:37] LABS: BASO % 0 % (0-3); EOS % 2 % (0-3); HEMATOCRIT 33.1 % (36.0-47.0); LYMPH # 1.4 x10^3/uL (1.0-4.8); LYMPH % 16 % (24-48); MEAN CORPUSCULAR HEMOGLOBIN 28 pg (25-35); MEAN CORPUSCULAR HGB CONC 33 g/dL (31-37); MEAN CORPUSCULAR VOLUME 85 fL (79-100); MONO % 7 % (0-9); NEUT % 75 % (31-73); PLATELET COUNT 149 x10^3/uL (140-400); RED BLOOD COUNT 3.88 x10^6/uL (3.50-5.40); RED CELL DISTRIBUTION WIDTH 14.4 % (11.5-14.5); WHITE BLOOD COUNT 8.9 x10^3/uL (4.0-11.0)
[2016-09-24 04:58] LABS: CALCIUM 8.3 mg/dL (8.5-10.1); CREATININE 0.9 mg/dL (0.6-1.0); POTASSIUM 3.4 mmol/L (3.5-5.1)
[2016-09-24 07:00] VITALS: BP 112/60
[2016-09-24] MEDS ORDERED: POTASSIUM CHLORIDE 20 MEQ TABLET.ER. PO ONE (08:00)
[2016-09-24 08:17] LABS: ALBUMIN 2.6 g/dL (3.4-5.0); DIRECT BILIRUBIN 0.3 mg/dL (0.0-0.2); TOTAL BILIRUBIN 0.6 mg/dL (0.2-1.0); TOTAL PROTEIN 5.3 g/dL (6.4-8.2)
[2016-09-24 11:03] VITALS: BP 114/60
--- NOTE | 2016-09-24 12:02 | PDOC ---
Subjective: Subjective: Still has pain, mostly w/ movement. Tolerating clears, no desire to advance. Passing gas. Objective: Vital Signs: Vital Signs Date Time Temp Pulse Resp B/P Pulse Ox O2 Delivery O2 Flow Rate FiO2 09/24/16 11:03 100.4 110 20 114/60 96 Room Air 100.4 Labs: Laboratory Tests Test 09/24/16 04:10 White Blood Count 8.9x10^3/uL Red Blood Count 3.88x10^6/uL Hemoglobin 11.0g/dL Hematocrit 33.1% Mean Corpuscular Volume 85fL Mean Corpuscular Hemoglobin 28pg Mean Corpuscular Hemoglobin Concent 33g/dL Red Cell Distribution Width 14.4% Platelet Count 149x10^3/uL Neutrophils (%) (Auto) 75% Lymphocytes (%) (Auto) 16% Monocytes (%) (Auto) 7% Eosinophils (%) (Auto) 2% Basophils (%) (Auto) 0% Neutrophils # (Auto) 6.7x10^3uL Lymphocytes # (Auto) 1.4x10^3/uL Monocytes # (Auto) 0.6x10^3/uL Eosinophils # (Auto) 0.1x10^3/uL Basophils # (Auto) 0.0x10^3/uL Sodium Level 136mmol/L Potassium Level 3.4mmol/L Chloride Level 103mmol/L Carbon Dioxide Level 27mmol/L Anion Gap 6 Blood Urea Nitrogen 7mg/dL Creatinine 0.9mg/dL Estimated GFR (Cockcroft-Gault) 79.0 Glucose Level 137mg/dL Calcium Level 8.3mg/dL Total Bilirubin 0.6mg/dL Direct Bilirubin 0.3mg/dL Aspartate Amino Transf (AST/SGOT) 24U/L Alanine Aminotransferase (ALT/SGPT) 150U/L Alkaline Phosphatase 263U/L Total Protein 5.3g/dL Albumin 2.6g/dL Lipase 1883U/L Imaging: US 09/22/16 IMPRESSION: No free fluid or loculated fluid seen. Prominent common bile duct measuring approximately 2.2 cm in greatest dimension. Some intrahepatic biliary ductal dilatation is also seen. PE: GEN: NAD, was asleep LUNGS: CTAB HEART: RRR ABD: epigastric tenderness to light palpation, BS+ NEURO/PSYCH: A & O 3 A/P: Choledocholithiasis, bile leak -s/p ERCP w/ sphincterotomy, stone extraction, stent placement 09/22/16 -post ERCP pancreatitis - lipase improved, still epigastric and some RUQ toward RLQ pain -- Okay to keep to clears for now. D/w Dr. Porras. Will review w/ Dr. Aviles need for further imaging r/o biloma (abd US neg for this 09/22). Recheck labs tomorrow. Added Miralax PRN. JONATHAN BLAIR September 24, 2016 12:02
--- NOTE | 2016-09-24 12:16 | PDOC ---
PROGRESS NOTES Chief Complaint Chief Complaint cc: abdominal pain, nausea, elevated bilirubin. bile leak post cholecystectomy 1 week ago, s/p ERCP 09/22 with sphinectomy and CBD stone removal and stent placement s/p recent lap cholecystectomy anxiety depression tobacco use low albumin 2/2 liver dz, no malnutrition elevated lipase post ERCP plan: fu with gi, sx advance diet as per GI ivf increase to 125cc/h, on clear liquid on zosyn pain control labs tmr, lipase tmr need to rule out biloma as per GI. dvt ppx History of Present Illness History of Present Illness severe abd pain if move right leg, otherwise ok with pain meds tolerate clear liquid post ERCP on 09/22 high lipase post ERCP, LFT better T 100.8 Vitals Vitals Vital Signs Date Time Temp Pulse Resp B/P Pulse Ox O2 Delivery O2 Flow Rate FiO2 09/24/16 11:03 100.4 110 20 114/60 96 Room Air 100.4 Physical Exam General: Alert, Oriented X3, Cooperative, No acute distress Heart: Regular rate, Normal S1, Normal S2, No murmurs Lungs: Clear, Other (decreased inspiratory effort. negative chest retractions and/or accessory muscle use. ) Abdomen: Soft, Other (moderate RUQ TTP on exam, some guarding ) Extremities: No clubbing, No cyanosis Skin: No rashes, No significant lesion Labs LABS Laboratory Tests Test 09/24/16 04:10 White Blood Count 8.9x10^3/uL (4.0-11.0) Red Blood Count 3.88x10^6/uL (3.50-5.40) Hemoglobin 11.0g/dL (12.0-15.5) Hematocrit 33.1% (36.0-47.0) Mean Corpuscular Volume 85fL (79-100) Mean Corpuscular Hemoglobin 28pg (25-35) Mean Corpuscular Hemoglobin Concent 33g/dL (31-37) Red Cell Distribution Width 14.4% (11.5-14.5) Platelet Count 149x10^3/uL (140-400) Neutrophils (%) (Auto) 75% (31-73) Lymphocytes (%) (Auto) 16% (24-48) Monocytes (%) (Auto) 7% (0-9) Eosinophils (%) (Auto) 2% (0-3) Basophils (%) (Auto) 0% (0-3) Neutrophils # (Auto) 6.7x10^3uL (1.8-7.7) Lymphocytes # (Auto) 1.4x10^3/uL (1.0-4.8) Monocytes # (Auto) 0.6x10^3/uL (0.0-1.1) Eosinophils # (Auto) 0.1x10^3/uL (0.0-0.7) Basophils # (Auto) 0.0x10^3/uL (0.0-0.2) Sodium Level 136mmol/L (136-145) Potassium Level 3.4mmol/L (3.5-5.1) Chloride Level 103mmol/L (98-107) Carbon Dioxide Level 27mmol/L (21-32) Anion Gap 6 (6-14) Blood Urea Nitrogen 7mg/dL (7-20) Creatinine 0.9mg/dL (0.6-1.0) Estimated GFR (Cockcroft-Gault) 79.0 Glucose Level 137mg/dL (70-99) Calcium Level 8.3mg/dL (8.5-10.1) Total Bilirubin 0.6mg/dL (0.2-1.0) Direct Bilirubin 0.3mg/dL (0.0-0.2) Aspartate Amino Transf (AST/SGOT) 24U/L (15-37) Alanine Aminotransferase (ALT/SGPT) 150U/L (14-59) Alkaline Phosphatase 263U/L (46-116) Total Protein 5.3g/dL (6.4-8.2) Albumin 2.6g/dL (3.4-5.0) Lipase 1883U/L (73-393) Review of Systems Review of Systems no chills, sob or chest pain Assessment and Plan Assessmemt and Plan Problems Medical Problems: (1) Cholelithiasis Status: Acute Problems: Comment Review of Relevant I have reviewed the following items marissa (where applicable) has been applied. Labs Laboratory Tests Test 09/23/16 04:31 09/24/16 04:10 White Blood Count 9.9x10^3/uL (4.0-11.0) 8.9x10^3/uL (4.0-11.0) Red Blood Count 4.34x10^6/uL (3.50-5.40) 3.88x10^6/uL (3.50-5.40) Hemoglobin 12.2g/dL (12.0-15.5) 11.0g/dL (12.0-15.5) Hematocrit 37.0% (36.0-47.0) 33.1% (36.0-47.0) Mean Corpuscular Volume 85fL (79-100) 85fL (79-100) Mean Corpuscular Hemoglobin 28pg (25-35) 28pg (25-35) Mean Corpuscular Hemoglobin Concent 33g/dL (31-37) 33g/dL (31-37) Red Cell Distribution Width 14.5% (11.5-14.5) 14.4% (11.5-14.5) Platelet Count 174x10^3/uL (140-400) 149x10^3/uL (140-400) Neutrophils (%) (Auto) 82% (31-73) 75% (31-73) Lymphocytes (%) (Auto) 10% (24-48) 16% (24-48) Monocytes (%) (Auto) 8% (0-9) 7% (0-9) Eosinophils (%) (Auto) 0% (0-3) 2% (0-3) Basophils (%) (Auto) 0% (0-3) 0% (0-3) Neutrophils # (Auto) 8.1x10^3uL (1.8-7.7) 6.7x10^3uL (1.8-7.7) Lymphocytes # (Auto) 1.0x10^3/uL (1.0-4.8) 1.4x10^3/uL (1.0-4.8) Monocytes # (Auto) 0.7x10^3/uL (0.0-1.1) 0.6x10^3/uL (0.0-1.1) Eosinophils # (Auto) 0.0x10^3/uL (0.0-0.7) 0.1x10^3/uL (0.0-0.7) Basophils # (Auto) 0.0x10^3/uL (0.0-0.2) 0.0x10^3/uL (0.0-0.2) Sodium Level 139mmol/L (136-145) 136mmol/L (136-145) Potassium Level 3.7mmol/L (3.5-5.1) 3.4mmol/L (3.5-5.1) Chloride Level 105mmol/L (98-107) 103mmol/L (98-107) Carbon Dioxide Level 25mmol/L (21-32) 27mmol/L (21-32) Anion Gap 9 (6-14) 6 (6-14) Blood Urea Nitrogen 11mg/dL (7-20) 7mg/dL (7-20) Creatinine 0.7mg/dL (0.6-1.0) 0.9mg/dL (0.6-1.0) Estimated GFR (Cockcroft-Gault) 105.6 79.0 BUN/Creatinine Ratio 16 (6-20) Glucose Level 95mg/dL (70-99) 137mg/dL (70-99) Calcium Level 8.4mg/dL (8.5-10.1) 8.3mg/dL (8.5-10.1) Total Bilirubin 0.8mg/dL (0.2-1.0) 0.6mg/dL (0.2-1.0) Aspartate Amino Transf (AST/SGOT) 43U/L (15-37) 24U/L (15-37) Alanine Aminotransferase (ALT/SGPT) 235U/L (14-59) 150U/L (14-59) Alkaline Phosphatase 364U/L (46-116) 263U/L (46-116) Total Protein 6.5g/dL (6.4-8.2) 5.3g/dL (6.4-8.2) Albumin 3.0g/dL (3.4-5.0) 2.6g/dL (3.4-5.0) Albumin/Globulin Ratio 0.9 (1.0-1.7) Amylase Level 422U/L (25-115) Lipase 4644U/L (73-393) 1883U/L (73-393) Direct Bilirubin 0.3mg/dL (0.0-0.2) Laboratory Tests Test 5/3/17 04:10 White Blood Count 8.9x10^3/uL (4.0-11.0) Red Blood Count 3.88x10^6/uL (3.50-5.40) Hemoglobin 11.0g/dL (12.0-15.5) Hematocrit 33.1% (36.0-47.0) Mean Corpuscular Volume 85fL (79-100) Mean Corpuscular Hemoglobin 28pg (25-35) Mean Corpuscular Hemoglobin Concent 33g/dL (31-37) Red Cell Distribution Width 14.4% (11.5-14.5) Platelet Count 149x10^3/uL (140-400) Neutrophils (%) (Auto) 75% (31-73) Lymphocytes (%) (Auto) 16% (24-48) Monocytes (%) (Auto) 7% (0-9) Eosinophils (%) (Auto) 2% (0-3) Basophils (%) (Auto) 0% (0-3) Neutrophils # (Auto) 6.7x10^3uL (1.8-7.7) Lymphocytes # (Auto) 1.4x10^3/uL (1.0-4.8) Monocytes # (Auto) 0.6x10^3/uL (0.0-1.1) Eosinophils # (Auto) 0.1x10^3/uL (0.0-0.7) Basophils # (Auto) 0.0x10^3/uL (0.0-0.2) Sodium Level 136mmol/L (136-145) Potassium Level 3.4mmol/L (3.5-5.1) Chloride Level 103mmol/L (98-107) Carbon Dioxide Level 27mmol/L (21-32) Anion Gap 6 (6-14) Blood Urea Nitrogen 7mg/dL (7-20) Creatinine 0.9mg/dL (0.6-1.0) Estimated GFR (Cockcroft-Gault) 79.0 Glucose Level 137mg/dL (70-99) Calcium Level 8.3mg/dL (8.5-10.1) Total Bilirubin 0.6mg/dL (0.2-1.0) Direct Bilirubin 0.3mg/dL (0.0-0.2) Aspartate Amino Transf (AST/SGOT) 24U/L (15-37) Alanine Aminotransferase (ALT/SGPT) 150U/L (14-59) Alkaline Phosphatase 263U/L (46-116) Total Protein 5.3g/dL (6.4-8.2) Albumin 2.6g/dL (3.4-5.0) Lipase 1883U/L (73-393) Medications Current Medications Sodium Chloride (Iv Sodium Chloride 0.9% 1000ml Bag) 1,000 ml @ 75 mls/hr [id number] IV Last administered on 09/22/16 09:15; Start 09/20/16 at 18:30; Stop 09/22/16 at 13:55; Status DC Ondansetron HCl (Zofran) 4 mg PRN Q6HRS PRN IV NAUSEA/VOMITING Last administered on 09/20/16 21:33; Start 09/20/16 at 18:30 Morphine Sulfate 2 mg 2 mg PRN Q2HR PRN IV PAIN Last administered on 09/22/16 11:15; Start 09/20/16 at 18:30; Stop 09/22/16 at 13:54; Status DC Ceftriaxone Sodium 1 gm/ Sodium Chloride 50 ml @ 100 mls/hr 1X ONCE IV ; Start 09/21/16 at 11:00; Stop 09/21/16 at 11:29; Status Cancel Ceftriaxone Sodium (Rocephin 1gm Ivpb For Omni) 50 ml @ 100 mls/hr 1X PREOP IV Last administered on 09/22/16 12:34; Start 09/22/16 at 14:00 Ketorolac Tromethamine (Toradol) 15 mg 1X ONCE IV Last administered on 22:41; Start 09/21/16 at 22:15; Stop 09/21/16 at 22:16; Status DC Hydromorphone HCl 0.5 mg 0.5 mg PRN Q2HR PRN IV SEVERE PAIN; Start 09/21/16 at 22:00; Stop 09/22/16 at 13:55; Status DC Piperacillin Sod/ Tazobactam Sod/ Sodium Chloride (Zosyn/Iv Sodium Chloride 0.9 % 50ml) 50 ml @ 100 mls/hr Q6HRS IV Last administered on 09/24/16 05:51; Start 09/22/16 at 09:00 Hydromorphone HCl (Dilaudid) 2 mg PRN Q4HRS PRN IV PAIN Last administered on 09:05; Start 09/22/16 at 10:45 Morphine Sulfate 4 mg 4 mg PRN Q2HR PRN IV PAIN Last administered on 09/22/16 18:09; Start 09/22/16 at 10:45 Lactated Ringer's 1,000 ml @ 125 mls/hr Q8H IV Last administered on 09/24/16 09:07; Start 09/22/16 at 11:15 Ceftriaxone Sodium (Rocephin 1gm Ivpb For Omni) 50 ml @ As Directed STK-MED ONCE IV ; Start 09/22/16 at 11:17; Stop 09/22/16 at 11:18; Status DC Iohexol (Omnipaque 300 Mg/ml) 100 ml STK-MED ONCE .ROUTE ; Start 09/22/16 at 11: 34; Stop 09/22/16 at 11:35; Status DC Ondansetron HCl (Zofran) 4 mg STK-MED ONCE .ROUTE ; Start 09/22/16 at 12:12; Stop 09/22/16 at 12:13; Status DC Acetaminophen (Tylenol) 650 mg PRN Q6HRS PRN PO FEVER; Start 09/22/16 at 13:45 Diphenhydramine HCl (Benadryl) 25 mg PRN Q6HRS PRN IVP ITCHING Last administered on 09/24/16 03:03; Start 09/22/16 at 22:45 Acetaminophen/ Hydrocodone Bitart (Lortab 5/325) 1 tab PRN Q4HRS PRN PO PAIN; Start 09/23/16 at 13:30 Potassium Chloride (Klor-Con) 40 meq 1X ONCE PO Last administered on 09/24/16 09:05; Start 09/24/16 at 08:00; Stop 09/24/16 at 08:05; Status DC Dexamethasone Sodium Phosphate (Decadron) 20 mg STK-MED ONCE .ROUTE ; Start 09/22 at 12:00; Stop 09/24/16 at 08:35; Status DC Succinylcholine Chloride (Anectine) 200 mg STK-MED ONCE .ROUTE ; Start 09/22/16 at 12:00; Stop 09/24/16 at 08:35; Status DC Propofol (Diprivan) 200 mg STK-MED ONCE IV ; Start 09/22/16 at 12:00; Stop at 08:35; Status DC Lidocaine HCl (Lidocaine HCl 2% Abboject) 100 mg STK-MED ONCE .ROUTE ; Start 09/22/16 at 12:00; Stop 09/24/16 at 08:35; Status DC Polyethylene Glycol (miraLAX PACKET) 17 gm DAILY PO ; Start 09/24/16 at 12:30 Active Scripts Active Reported Oxycodone-Acetaminophen 5-325 (Oxycodone Hcl/Acetaminophen) 1 Each Tablet 1 Tab PO PRN PRN Promethazine Hcl 25 Mg Tablet 25 Mg PO PRN PRN Vitals/I & O Vital Sign - Last 24 Hours 09/23/16 09/23/16 09/23/16 09/23/16 12:31 15:00 16:46 19:00 Temp 98.8 100.4 98.8 100.4 Pulse 97 104 Resp 16 16 16 20 B/P 115/59 115/55 Pulse Ox 100 99 O2 Delivery Room Air Room Air Room Air Room Air 09/23/16 09/23/16 09/23/16 09/24/16 19:50 20:49 23:19 00:51 Temp 100.8 100.8 Pulse 107 Resp 18 20 18 B/P 110/55 Pulse Ox 95 O2 Delivery Room Air Room Air Room Air Room Air 09/24/16 09/24/16 09/24/16 09/24/16 03:23 04:53 05:23 07:00 Temp 99.3 100.4 99.3 100.4 Pulse 106 94 Resp 18 18 18 16 B/P 117/66 112/60 Pulse Ox 98 96 O2 Delivery Room Air Room Air Room Air Room Air 09/24/16 09/24/16 09/24/16 08:10 09:05 11:03 Temp 100.4 100.4 Pulse 110 Resp 16 20 B/P 114/60 Pulse Ox 96 O2 Delivery Room Air Room Air Room Air Intake and Output 09/23/16 09/23/16 09/24/16 15:00 23:00 07:00 Intake Total 2855 ml Balance 2855 ml SNEHA MOELLER MD September 24, 2016 12:16
--- NOTE | 2016-09-24 12:22 | PDOC ---
Provider Note Provider Note c/o heartburn. less abd pain today--says she can be up and moving more with less pain afeb vss appears well abd soft nd less tender inc cdi a/p adat (pt not interested in advancing today) SHADE AL MD September 24, 2016 12:22
[2016-09-24] MEDS: POLYETHYLENE GLYCOL 3350 17 GM PACKET. PO SCH (12:30)
[2016-09-24 15:01] VITALS: BP 116/64
[2016-09-24] MEDS: ENOXAPARIN 40 MG/0.4 ML SYRINGE. SQ SCH (15:24)
[2016-09-24] MEDS: ACETAMINOPHEN 325 MG TABLET. PO PRN (15:24)
[2016-09-24 19:42] VITALS: BP 117/59
[2016-09-24] MEDS: HYDROcodone/APAP 5/325MG 1 TAB TABLET PO PRN (22:54)
[2016-09-24 23:04] VITALS: BP 114/62
[2016-09-25] MEDS: PIPERACILLIN/TAZOBACTAM 3.375 GM in IV NORMAL SALINE 50ML 50 ML IV SCH ×4 (00:12→18:52)
[2016-09-25] MEDS: HYDROmorphone 2 MG/ML VIAL IV PRN ×3 (01:38→18:51)
[2016-09-25 02:37] VITALS: BP 117/62
[2016-09-25] MEDS: HYDROcodone/APAP 5/325MG 1 TAB TABLET PO PRN ×2 (05:00→15:53)
[2016-09-25 07:00] VITALS: BP 124/61
[2016-09-25 07:32] LABS: ALBUMIN 2.6 g/dL (3.4-5.0); DIRECT BILIRUBIN 0.4 mg/dL (0.0-0.2); TOTAL BILIRUBIN 0.7 mg/dL (0.2-1.0); TOTAL PROTEIN 5.4 g/dL (6.4-8.2)
[2016-09-25] MEDS ORDERED: IOHEXOL 240 MG/ML 50ML VIAL. PO ONE (08:00)
[2016-09-25] MEDS ORDERED: IOHEXOL 300 MG/ML 75 ML VIAL IV ONE (08:00)
[2016-09-25 08:07] LABS: BASO % 0 % (0-3); EOS % 5 % (0-3); HEMATOCRIT 34.1 % (36.0-47.0); HEMOGLOBIN 11.2 g/dL (12.0-15.5); LYMPH # 1.6 x10^3/uL (1.0-4.8); LYMPH % 16 % (24-48); MEAN CORPUSCULAR HEMOGLOBIN 28 pg (25-35); MEAN CORPUSCULAR HGB CONC 33 g/dL (31-37); MEAN CORPUSCULAR VOLUME 85 fL (79-100); MONO % 8 % (0-9); NEUT % 71 % (31-73); PLATELET COUNT 175 x10^3/uL (140-400); RED CELL DISTRIBUTION WIDTH 14.3 % (11.5-14.5); WHITE BLOOD COUNT 10.1 x10^3/uL (4.0-11.0)
[2016-09-25] MEDS ORDERED: CONTRAST GIVEN MC PRN (08:15)
--- NOTE | 2016-09-25 08:54 | PDOC ---
VIRAL BOGGS [employer]OCIATE [employer]ODUCER 09/25/16 0854: SURGICAL PROGRESS NOTE Subjective low back pain, no n/v no urinary pain Vital Signs Vital Signs Date Time Temp Pulse Resp B/P (MAP) Pulse Ox O2 Delivery O2 Flow Rate FiO2 09/25/16 02:37 100.4 93 20 117/62 (80) 94 Room Air 100.4 I&O Intake and Output 09/25/16 06:59 Intake Total 3108 ml Output Total 700 ml Balance 2408 ml Intake Oral 120 ml Other 2988 ml Output Urine Total 700 ml # Voids 1 # Bowel Movements 2 General: Alert, Oriented X3, Cooperative, No acute distress Abdomen: Soft, Other (no pain on exam today) Labs Laboratory Tests Test 09/24/16 04:10 09/25/16 03:53 09/25/16 03:55 White Blood Count 8.9 x10^3/uL (4.0-11.0) 10.1 x10^3/uL (4.0-11.0) Red Blood Count 3.88 x10^6/uL (3.50-5.40) 4.00 x10^6/uL (3.50-5.40) Hemoglobin 11.0 g/dL (12.0-15.5) 11.2 g/dL (12.0-15.5) Hematocrit 33.1 % (36.0-47.0) 34.1 % (36.0-47.0) Mean Corpuscular Volume 85 fL (79-100) 85 fL (79-100) Mean Corpuscular Hemoglobin 28 pg (25-35) 28 pg (25-35) Mean Corpuscular Hemoglobin Concent 33 g/dL (31-37) 33 g/dL (31-37) Red Cell Distribution Width 14.4 % (11.5-14.5) 14.3 % (11.5-14.5) Platelet Count 149 x10^3/uL (140-400) 175 x10^3/uL (140-400) Neutrophils (%) (Auto) 75 % (31-73) 71 % (31-73) Lymphocytes (%) (Auto) 16 % (24-48) 16 % (24-48) Monocytes (%) (Auto) 7 % (0-9) 8 % (0-9) Eosinophils (%) (Auto) 2 % (0-3) 5 % (0-3) Basophils (%) (Auto) 0 % (0-3) 0 % (0-3) Neutrophils # (Auto) 6.7 x10^3uL (1.8-7.7) 7.1 x10^3uL (1.8-7.7) Lymphocytes # (Auto) 1.4 x10^3/uL (1.0-4.8) 1.6 x10^3/uL (1.0-4.8) Monocytes # (Auto) 0.6 x10^3/uL (0.0-1.1) 0.8 x10^3/uL (0.0-1.1) Eosinophils # (Auto) 0.1 x10^3/uL (0.0-0.7) 0.5 x10^3/uL (0.0-0.7) Basophils # (Auto) 0.0 x10^3/uL (0.0-0.2) 0.0 x10^3/uL (0.0-0.2) Sodium Level 136 mmol/L (136-145) Potassium Level 3.4 mmol/L (3.5-5.1) Chloride Level 103 mmol/L (98-107) Carbon Dioxide Level 27 mmol/L (21-32) Anion Gap 6 (6-14) Blood Urea Nitrogen 7 mg/dL (7-20) Creatinine 0.9 mg/dL (0.6-1.0) Estimated GFR (Cockcroft-Gault) 79.0 Glucose Level 137 mg/dL (70-99) Calcium Level 8.3 mg/dL (8.5-10.1) Total Bilirubin 0.6 mg/dL (0.2-1.0) 0.7 mg/dL (0.2-1.0) Direct Bilirubin 0.3 mg/dL (0.0-0.2) 0.4 mg/dL (0.0-0.2) Aspartate Amino Transf (AST/SGOT) 24 U/L (15-37) 18 U/L (15-37) Alanine Aminotransferase (ALT/SGPT) 150 U/L (14-59) 113 U/L (14-59) Alkaline Phosphatase 263 U/L (46-116) 234 U/L (46-116) Total Protein 5.3 g/dL (6.4-8.2) 5.4 g/dL (6.4-8.2) Albumin 2.6 g/dL (3.4-5.0) 2.6 g/dL (3.4-5.0) Lipase 1883 U/L (73-393) 334 U/L (73-393) Laboratory Tests Test 09/25/16 03:53 09/25/16 03:55 White Blood Count 10.1 x10^3/uL (4.0-11.0) Red Blood Count 4.00 x10^6/uL (3.50-5.40) Hemoglobin 11.2 g/dL (12.0-15.5) Hematocrit 34.1 % (36.0-47.0) Mean Corpuscular Volume 85 fL (79-100) Mean Corpuscular Hemoglobin 28 pg (25-35) Mean Corpuscular Hemoglobin Concent 33 g/dL (31-37) Red Cell Distribution Width 14.3 % (11.5-14.5) Platelet Count 175 x10^3/uL (140-400) Neutrophils (%) (Auto) 71 % (31-73) Lymphocytes (%) (Auto) 16 % (24-48) Monocytes (%) (Auto) 8 % (0-9) Eosinophils (%) (Auto) 5 % (0-3) Basophils (%) (Auto) 0 % (0-3) Neutrophils # (Auto) 7.1 x10^3uL (1.8-7.7) Lymphocytes # (Auto) 1.6 x10^3/uL (1.0-4.8) Monocytes # (Auto) 0.8 x10^3/uL (0.0-1.1) Eosinophils # (Auto) 0.5 x10^3/uL (0.0-0.7) Basophils # (Auto) 0.0 x10^3/uL (0.0-0.2) Total Bilirubin 0.7 mg/dL (0.2-1.0) Direct Bilirubin 0.4 mg/dL (0.0-0.2) Aspartate Amino Transf (AST/SGOT) 18 U/L (15-37) Alanine Aminotransferase (ALT/SGPT) 113 U/L (14-59) Alkaline Phosphatase 234 U/L (46-116) Total Protein 5.4 g/dL (6.4-8.2) Albumin 2.6 g/dL (3.4-5.0) Lipase 334 U/L (73-393) Problem List Problems Medical Problems: (1) Cholelithiasis Status: Acute Assessment/Plan bile leak, ercp, pancreatitis tmax 101.7, wbc 10 CT today to assess Problems: SHADE AL MD 09/25/16 1250: SURGICAL PROGRESS NOTE Assessment/Plan addendum i saw and examined her. she appears better/healthier than in prior days. wbc normal ct without unexpected findings. a/p will watch overnight due to fever but i expect she will do well and likely dc home tomorrow. Problems: VIRAL BOGGS APRN September 25, 2016 08:54 SHADE AL MD September 25, 2016 12:50
[2016-09-25] MEDS: POLYETHYLENE GLYCOL 3350 17 GM PACKET. PO SCH (09:00)
[2016-09-25] MEDS: ACETAMINOPHEN 325 MG TABLET. PO PRN (09:43)
--- NOTE | 2016-09-25 10:30 | PDOC ---
Subjective: Subjective: Feels better, pain better. Tired of IV beeping. Objective: Objective: Tmax 101.7 Vital Signs: Vital Signs Date Time Temp Pulse Resp B/P (MAP) Pulse Ox O2 Delivery O2 Flow Rate FiO2 09/25/16 07:00 100.3 105 20 124/61 (82) 96 Room Air 100.3 PE: GEN: NAD, looks better than yesterday LUNGS: clear anteriorly HEART: RRR ABD: less tender NEURO/PSYCH: A & O 3 A/P: Choledocholithiasis, bile leak -s/p ERCP w/ sphincterotomy, stone extraction, stent placement 09/22/16 -post ERCP pancreatitis - lipase now normal, LFTs trending down -RUQ and epigastric pain improved today Fever -on atbx -- D/w Dr. Porras. Await CT. JONATHAN BLAIR September 25, 2016 10:29
[2016-09-25 11:00] VITALS: BP 107/52
--- NOTE | 2016-09-25 11:47 | PDOC ---
PROGRESS NOTES Chief Complaint Chief Complaint cc: abdominal pain, nausea, elevated bilirubin. bile leak post cholecystectomy 1 week ago, s/p ERCP 09/22 with sphinectomy and CBD stone removal and stent placement s/p recent lap cholecystectomy anxiety depression tobacco use low albumin 2/2 liver dz, no malnutrition elevated lipase post ERCP plan: fu with gi, sx ivf increase to 125cc/h, on regular diet now on zosyn pain control labs tmr need to rule out biloma as per GI. repeat abd CT 09/25 as per sx given fever, wbc 10 dvt ppx History of Present Illness History of Present Illness severe abd pain if move right leg, otherwise ok with pain meds, new back pain 09/24 night, with T 101.3 tolerate clear liquid post ERCP on 09/22 high lipase post ERCP, normal now, LFT better fever since 09/24 Vitals Vitals Vital Signs Date Time Temp Pulse Resp B/P (MAP) Pulse Ox O2 Delivery O2 Flow Rate FiO2 09/25/16 11:20 Room Air 09/25/16 07:00 100.3 105 20 124/61 (82) 96 100.3 Physical Exam General: Alert, Oriented X3, Cooperative, No acute distress Heart: Regular rate, Normal S1, Normal S2, No murmurs Lungs: Clear, Other (decreased inspiratory effort. negative chest retractions and/or accessory muscle use. ) Abdomen: Soft, Other (no pain on exam today) Extremities: No clubbing, No cyanosis Skin: No rashes, No significant lesion Labs LABS Laboratory Tests Test 09/25/16 03:53 09/25/16 03:55 White Blood Count 10.1 x10^3/uL (4.0-11.0) Red Blood Count 4.00 x10^6/uL (3.50-5.40) Hemoglobin 11.2 g/dL (12.0-15.5) Hematocrit 34.1 % (36.0-47.0) Mean Corpuscular Volume 85 fL (79-100) Mean Corpuscular Hemoglobin 28 pg (25-35) Mean Corpuscular Hemoglobin Concent 33 g/dL (31-37) Red Cell Distribution Width 14.3 % (11.5-14.5) Platelet Count 175 x10^3/uL (140-400) Neutrophils (%) (Auto) 71 % (31-73) Lymphocytes (%) (Auto) 16 % (24-48) Monocytes (%) (Auto) 8 % (0-9) Eosinophils (%) (Auto) 5 % (0-3) Basophils (%) (Auto) 0 % (0-3) Neutrophils # (Auto) 7.1 x10^3uL (1.8-7.7) Lymphocytes # (Auto) 1.6 x10^3/uL (1.0-4.8) Monocytes # (Auto) 0.8 x10^3/uL (0.0-1.1) Eosinophils # (Auto) 0.5 x10^3/uL (0.0-0.7) Basophils # (Auto) 0.0 x10^3/uL (0.0-0.2) Total Bilirubin 0.7 mg/dL (0.2-1.0) Direct Bilirubin 0.4 mg/dL (0.0-0.2) Aspartate Amino Transf (AST/SGOT) 18 U/L (15-37) Alanine Aminotransferase (ALT/SGPT) 113 U/L (14-59) Alkaline Phosphatase 234 U/L (46-116) Total Protein 5.4 g/dL (6.4-8.2) Albumin 2.6 g/dL (3.4-5.0) Lipase 334 U/L (73-393) Review of Systems Review of Systems no chills, sob or chest pain Assessment and Plan Assessmemt and Plan Problems Medical Problems: (1) Cholelithiasis Status: Acute Problems: Comment Review of Relevant I have reviewed the following items marissa (where applicable) has been applied. Labs Laboratory Tests Test 09/24/16 04:10 09/25/16 03:53 09/25/16 03:55 White Blood Count 8.9 x10^3/uL (4.0-11.0) 10.1 x10^3/uL (4.0-11.0) Red Blood Count 3.88 x10^6/uL (3.50-5.40) 4.00 x10^6/uL (3.50-5.40) Hemoglobin 11.0 g/dL (12.0-15.5) 11.2 g/dL (12.0-15.5) Hematocrit 33.1 % (36.0-47.0) 34.1 % (36.0-47.0) Mean Corpuscular Volume 85 fL (79-100) 85 fL (79-100) Mean Corpuscular Hemoglobin 28 pg (25-35) 28 pg (25-35) Mean Corpuscular Hemoglobin Concent 33 g/dL (31-37) 33 g/dL (31-37) Red Cell Distribution Width 14.4 % (11.5-14.5) 14.3 % (11.5-14.5) Platelet Count 149 x10^3/uL (140-400) 175 x10^3/uL (140-400) Neutrophils (%) (Auto) 75 % (31-73) 71 % (31-73) Lymphocytes (%) (Auto) 16 % (24-48) 16 % (24-48) Monocytes (%) (Auto) 7 % (0-9) 8 % (0-9) Eosinophils (%) (Auto) 2 % (0-3) 5 % (0-3) Basophils (%) (Auto) 0 % (0-3) 0 % (0-3) Neutrophils # (Auto) 6.7 x10^3uL (1.8-7.7) 7.1 x10^3uL (1.8-7.7) Lymphocytes # (Auto) 1.4 x10^3/uL (1.0-4.8) 1.6 x10^3/uL (1.0-4.8) Monocytes # (Auto) 0.6 x10^3/uL (0.0-1.1) 0.8 x10^3/uL (0.0-1.1) Eosinophils # (Auto) 0.1 x10^3/uL (0.0-0.7) 0.5 x10^3/uL (0.0-0.7) Basophils # (Auto) 0.0 x10^3/uL (0.0-0.2) 0.0 x10^3/uL (0.0-0.2) Sodium Level 136 mmol/L (136-145) Potassium Level 3.4 mmol/L (3.5-5.1) Chloride Level 103 mmol/L (98-107) Carbon Dioxide Level 27 mmol/L (21-32) Anion Gap 6 (6-14) Blood Urea Nitrogen 7 mg/dL (7-20) Creatinine 0.9 mg/dL (0.6-1.0) Estimated GFR (Cockcroft-Gault) 79.0 Glucose Level 137 mg/dL (70-99) Calcium Level 8.3 mg/dL (8.5-10.1) Total Bilirubin 0.6 mg/dL (0.2-1.0) 0.7 mg/dL (0.2-1.0) Direct Bilirubin 0.3 mg/dL (0.0-0.2) 0.4 mg/dL (0.0-0.2) Aspartate Amino Transf (AST/SGOT) 24 U/L (15-37) 18 U/L (15-37) Alanine Aminotransferase (ALT/SGPT) 150 U/L (14-59) 113 U/L (14-59) Alkaline Phosphatase 263 U/L (46-116) 234 U/L (46-116) Total Protein 5.3 g/dL (6.4-8.2) 5.4 g/dL (6.4-8.2) Albumin 2.6 g/dL (3.4-5.0) 2.6 g/dL (3.4-5.0) Lipase 1883 U/L (73-393) 334 U/L (73-393) Laboratory Tests Test 09/25/16 03:53 09/25/16 03:55 White Blood Count 10.1 x10^3/uL (4.0-11.0) Red Blood Count 4.00 x10^6/uL (3.50-5.40) Hemoglobin 11.2 g/dL (12.0-15.5) Hematocrit 34.1 % (36.0-47.0) Mean Corpuscular Volume 85 fL (79-100) Mean Corpuscular Hemoglobin 28 pg (25-35) Mean Corpuscular Hemoglobin Concent 33 g/dL (31-37) Red Cell Distribution Width 14.3 % (11.5-14.5) Platelet Count 175 x10^3/uL (140-400) Neutrophils (%) (Auto) 71 % (31-73) Lymphocytes (%) (Auto) 16 % (24-48) Monocytes (%) (Auto) 8 % (0-9) Eosinophils (%) (Auto) 5 % (0-3) Basophils (%) (Auto) 0 % (0-3) Neutrophils # (Auto) 7.1 x10^3uL (1.8-7.7) Lymphocytes # (Auto) 1.6 x10^3/uL (1.0-4.8) Monocytes # (Auto) 0.8 x10^3/uL (0.0-1.1) Eosinophils # (Auto) 0.5 x10^3/uL (0.0-0.7) Basophils # (Auto) 0.0 x10^3/uL (0.0-0.2) Total Bilirubin 0.7 mg/dL (0.2-1.0) Direct Bilirubin 0.4 mg/dL (0.0-0.2) Aspartate Amino Transf (AST/SGOT) 18 U/L (15-37) Alanine Aminotransferase (ALT/SGPT) 113 U/L (14-59) Alkaline Phosphatase 234 U/L (46-116) Total Protein 5.4 g/dL (6.4-8.2) Albumin 2.6 g/dL (3.4-5.0) Lipase 334 U/L (73-393) Medications Current Medications Sodium Chloride 1,000 ml @ 75 mls/hr [id number] IV Last administered on 09/22/16 09:15; Start 09/20/16 at 18:30; Stop 09/22/16 at 13:55; Status DC Ondansetron HCl (Zofran) 4 mg PRN Q6HRS PRN IV NAUSEA/VOMITING Last administered on 09/20/16 21:33; Start 09/20/16 at 18:30 Morphine Sulfate 2 mg PRN Q2HR PRN IV PAIN Last administered on 09/22/16 11:15 ; Start 09/20/16 at 18:30; Stop 09/22/16 at 13:54; Status DC Ceftriaxone Sodium 1 gm/ Sodium Chloride 50 ml @ 100 mls/hr 1X ONCE IV ; Start 09/21/16 at 11:00; Stop 09/21/16 at 11:29; Status Cancel Ceftriaxone Sodium 50 ml @ 100 mls/hr 1X PREOP IV Last administered on 12:34; Start 09/22/16 at 14:00 Ketorolac Tromethamine (Toradol) 15 mg 1X ONCE IV Last administered on 22:41; Start 09/21/16 at 22:15; Stop 09/21/16 at 22:16; Status DC Hydromorphone HCl (Dilaudid) 0.5 mg PRN Q2HR PRN IV SEVERE PAIN; Start at 22:00; Stop 09/22/16 at 13:55; Status DC Piperacillin Sod/ Tazobactam Sod 3.375 gm/Sodium Chloride 50 ml @ 100 mls/hr Q6HRS IV Last administered on 09/25/16 09:44; Start 09/22/16 at 09:00 Hydromorphone HCl (Dilaudid) 2 mg PRN Q4HRS PRN IV PAIN Last administered on 11:20; Start 09/22/16 at 10:45 Morphine Sulfate 4 mg PRN Q2HR PRN IV PAIN Last administered on 09/22/16 18:09 ; Start 09/22/16 at 10:45 Lactated Ringer's 1,000 ml @ 125 mls/hr Q8H IV Last administered on 09/24/16 20:41; Start 09/22/16 at 11:15 Ceftriaxone Sodium 50 ml @ As Directed STK-MED ONCE IV ; Start 09/22/16 at 11:17 ; Stop 09/22/16 at 11:18; Status DC Iohexol (Omnipaque 300 Mg/ml) 100 ml STK-MED ONCE .ROUTE ; Start 09/22/16 at 11: 34; Stop 09/22/16 at 11:35; Status DC Ondansetron HCl (Zofran) 4 mg STK-MED ONCE .ROUTE ; Start 09/22/16 at 12:12; Stop 09/22/16 at 12:13; Status DC Acetaminophen (Tylenol) 650 mg PRN Q6HRS PRN PO FEVER Last administered on 09:43; Start 09/22/16 at 13:45 Diphenhydramine HCl (Benadryl) 25 mg PRN Q6HRS PRN IVP ITCHING Last administered on 09/24/16 15:55; Start 09/22/16 at 22:45; Stop 09/24/16 at 18:54; Status DC Acetaminophen/ Hydrocodone Bitart (Lortab 5/325) 1 tab PRN Q4HRS PRN PO PAIN Last administered on 09/25/16 05:00; Start 09/23/16 at 13:30 Potassium Chloride (Klor-Con) 40 meq 1X ONCE PO Last administered on 09/24/16 09:05; Start 09/24/16 at 08:00; Stop 09/24/16 at 08:05; Status DC Dexamethasone Sodium Phosphate (Decadron) 20 mg STK-MED ONCE .ROUTE ; Start 09/22 at 12:00; Stop 09/24/16 at 08:35; Status DC Succinylcholine Chloride (Anectine) 200 mg STK-MED ONCE .ROUTE ; Start 09/22/16 at 12:00; Stop 09/24/16 at 08:35; Status DC Propofol (Diprivan) 200 mg STK-MED ONCE IV ; Start 09/22/16 at 12:00; Stop at 08:35; Status DC Lidocaine HCl (Lidocaine HCl 2% Abboject) 100 mg STK-MED ONCE .ROUTE ; Start 09/22/16 at 12:00; Stop 09/24/16 at 08:35; Status DC Polyethylene Glycol (miraLAX PACKET) 17 gm DAILY PO ; Start 09/24/16 at 12:30 Enoxaparin Sodium (Lovenox 40mg Syringe) 40 mg Q24H SQ Last administered on 09/24 15:24; Start 09/24/16 at 13:00 Iohexol (Omnipaque 240 Mg/ml) 30 ml 1X ONCE PO ; Start 09/25/16 at 08:00; Stop 09/25/16 at 08:06; Status DC Iohexol (Omnipaque 300 Mg/ml) 75 ml 1X ONCE IV ; Start 09/25/16 at 08:00; Stop 09/25/16 at 08:06; Status DC Info (Do NOT chart on this entry -- for MONITORING) 1 each PRN DAILY PRN MC SEE COMMENTS; Start 09/25/16 at 08:15; Stop 09/27/16 at 08:14 Active Scripts Active Reported Oxycodone-Acetaminophen 5-325 (Oxycodone Hcl/Acetaminophen) 1 Each Tablet 1 Tab PO PRN PRN Promethazine Hcl 25 Mg Tablet 25 Mg PO PRN PRN Vitals/I & O Vital Sign - Last 24 Hours 09/24/16 09/24/16 09/24/16 09/24/16 15:01 15:26 19:42 20:05 Temp 101.7 98.8 101.7 98.8 Pulse 117 88 Resp 20 16 20 B/P (MAP) 116/64 (81) 117/59 (78) Pulse Ox 97 97 O2 Delivery Room Air Room Air Room Air Room Air 09/24/16 09/24/16 09/24/16 09/25/16 20:40 22:54 23:04 00:13 Temp 98.8 98.8 Pulse 98 Resp 20 18 18 B/P (MAP) 114/62 (79) Pulse Ox 97 97 97 97 O2 Delivery Room Air Room Air Room Air Room Air 09/25/16 09/25/16 09/25/16 09/25/16 01:38 02:10 02:37 07:00 Temp 100.4 100.3 100.4 100.3 Pulse 93 105 Resp 18 18 20 20 B/P (MAP) 117/62 (80) 124/61 (82) Pulse Ox 97 94 94 96 O2 Delivery Room Air Room Air Room Air Room Air 09/25/16 11:20 O2 Delivery Room Air Intake and Output 09/24/16 09/24/16 09/25/16 15:00 23:00 07:00 Intake Total 3108 ml Output Total 700 ml Balance -700 ml 3108 ml SNEHA MOELLER MD September 25, 2016 11:47
--- NOTE | 2016-09-25 12:43 | RAD ---
Indication fever. Status post ERCP and stent placement for bile leak. Note is made of the cholecystectomy 09/15/2016 and the hepatobiliary scan 09/21/2016 demonstrating findings compatible with a bile leak. Note is made of the limited right upper quadrant abdominal ultrasound 09/22/2016. Axial images of the abdomen and pelvis were obtained. Both IV and oral contrast were administered. Approximately 75 cc of Omnipaque 300 was administered intravenously. No prior CT imaging of the abdomen or pelvis is available. The lung bases are clear. There are tiny pockets of free air seen in the midline, in the upper abdomen. This may be incidental and related to the patient's recent cholecystectomy. Large amounts of pneumoperitoneum are not seen. The liver and spleen appear unremarkable. Clips are seen in the gallbladder fossa. Biliary stent is noted which appears to be appropriately positioned. There is a 2 cm low-density mass in the gallbladder fossa which may reflect a small biloma. The pancreas appears unremarkable. No adrenal pathology is seen. There is some stranding in the soft tissues on the right. This involves the right perirenal fascia and the soft tissues immediately caudal to the liver and extending into the pericecal mesentery. Similar soft tissue stranding is seen surrounding the right psoas muscle. This is likely a function of the bile leak demonstrated in this region on the referenced hepatobiliary scan. Underlying infection is not excluded. There is slight prominence of the right renal pelvis which is nonspecific. A mild obstructive component associated with the proximal ureter is not excluded. A renal mass is not seen. There is no significant free fluid seen in the pelvis. A discrete mass is not apparent. IMPRESSION: Small amount of pneumoperitoneum. The etiology is not clear but may be related to the patient's cholecystectomy approximately 2 weeks previously. 2 cm mass in the gallbladder fossa may reflect a small biloma. Stranding in the soft tissues predominantly involving the right retroperitoneum likely secondary to the bile leak referenced on recent hepatobiliary scan. Underlying associated infection is not entirely excluded. Slight fullness of the right renal pelvis and most proximal ureter. The etiology or clinical significance is uncertain PQRS Compliance Statement: One or more of the following individualized dose reduction techniques were utilized for this examination: 1. Automated exposure control 2. Adjustment of the mA and/or kV according to patient size 3. Use of iterative reconstruction technique
[2016-09-25 15:00] VITALS: BP 119/54
[2016-09-25] MEDS: ENOXAPARIN 40 MG/0.4 ML SYRINGE. SQ SCH (16:04)
[2016-09-25 19:00] VITALS: BP 116/62
[2016-09-25 23:00] VITALS: BP 120/64
[2016-09-25] MEDS: oxyCODONE/APAP 5/325 1 TAB TABLET PO PRN (23:08)
[2016-09-26] MEDS: PIPERACILLIN/TAZOBACTAM 3.375 GM in IV NORMAL SALINE 50ML 50 ML IV SCH ×2 (01:00→06:41)
[2016-09-26 03:00] VITALS: BP 116/67
[2016-09-26] MEDS: oxyCODONE/APAP 5/325 1 TAB TABLET PO PRN ×2 (03:46→09:31)
[2016-09-26 04:37] LABS: BASO # 0.1 x10^3/uL (0.0-0.2); BASO % 1 % (0-3); EOS % 7 % (0-3); HEMATOCRIT 33.5 % (36.0-47.0); LYMPH # 1.2 x10^3/uL (1.0-4.8); LYMPH % 14 % (24-48); MEAN CORPUSCULAR HEMOGLOBIN 28 pg (25-35); MEAN CORPUSCULAR HGB CONC 33 g/dL (31-37); MEAN CORPUSCULAR VOLUME 85 fL (79-100); MONO % 6 % (0-9); NEUT % 73 % (31-73); PLATELET COUNT 209 x10^3/uL (140-400); RED BLOOD COUNT 3.94 x10^6/uL (3.50-5.40); WHITE BLOOD COUNT 8.8 x10^3/uL (4.0-11.0)
[2016-09-26 05:12] LABS: CALCIUM 8.8 mg/dL (8.5-10.1); CREATININE 0.7 mg/dL (0.6-1.0); GFR 105.6; POTASSIUM 3.1 mmol/L (3.5-5.1)
[2016-09-26 07:00] VITALS: BP 128/65
[2016-09-26 07:11] LABS: ALBUMIN 2.7 g/dL (3.4-5.0); DIRECT BILIRUBIN 0.3 mg/dL (0.0-0.2); TOTAL BILIRUBIN 0.7 mg/dL (0.2-1.0); TOTAL PROTEIN 5.9 g/dL (6.4-8.2)
--- NOTE | 2016-09-26 08:20 | PDOC ---
SURGICAL PROGRESS NOTE Subjective arm sore, IV site no abdominal or back pain this am did not eat, does not like the food here Vital Signs Vital Signs Date Time Temp Pulse Resp B/P (MAP) Pulse Ox O2 Delivery O2 Flow Rate FiO2 09/26/16 04:46 16 Room Air 09/26/16 03:00 98.8 83 116/67 (83) 98 98.8 I&O Intake and Output 09/26/16 07:00 Intake Total 360 ml Balance 360 ml Intake Oral 360 ml # Voids 6 General: Alert, Oriented X3, Cooperative, No acute distress Abdomen: Soft, No tenderness Labs Laboratory Tests Test 09/25/16 03:53 09/25/16 03:55 09/26/16 04:06 White Blood Count 10.1 x10^3/uL (4.0-11.0) 8.8 x10^3/uL (4.0-11.0) Red Blood Count 4.00 x10^6/uL (3.50-5.40) 3.94 x10^6/uL (3.50-5.40) Hemoglobin 11.2 g/dL (12.0-15.5) 11.0 g/dL (12.0-15.5) Hematocrit 34.1 % (36.0-47.0) 33.5 % (36.0-47.0) Mean Corpuscular Volume 85 fL (79-100) 85 fL (79-100) Mean Corpuscular Hemoglobin 28 pg (25-35) 28 pg (25-35) Mean Corpuscular Hemoglobin Concent 33 g/dL (31-37) 33 g/dL (31-37) Red Cell Distribution Width 14.3 % (11.5-14.5) 14.0 % (11.5-14.5) Platelet Count 175 x10^3/uL (140-400) 209 x10^3/uL (140-400) Neutrophils (%) (Auto) 71 % (31-73) 73 % (31-73) Lymphocytes (%) (Auto) 16 % (24-48) 14 % (24-48) Monocytes (%) (Auto) 8 % (0-9) 6 % (0-9) Eosinophils (%) (Auto) 5 % (0-3) 7 % (0-3) Basophils (%) (Auto) 0 % (0-3) 1 % (0-3) Neutrophils # (Auto) 7.1 x10^3uL (1.8-7.7) 6.4 x10^3uL (1.8-7.7) Lymphocytes # (Auto) 1.6 x10^3/uL (1.0-4.8) 1.2 x10^3/uL (1.0-4.8) Monocytes # (Auto) 0.8 x10^3/uL (0.0-1.1) 0.5 x10^3/uL (0.0-1.1) Eosinophils # (Auto) 0.5 x10^3/uL (0.0-0.7) 0.6 x10^3/uL (0.0-0.7) Basophils # (Auto) 0.0 x10^3/uL (0.0-0.2) 0.1 x10^3/uL (0.0-0.2) Total Bilirubin 0.7 mg/dL (0.2-1.0) 0.7 mg/dL (0.2-1.0) Direct Bilirubin 0.4 mg/dL (0.0-0.2) 0.3 mg/dL (0.0-0.2) Aspartate Amino Transf (AST/SGOT) 18 U/L (15-37) 20 U/L (15-37) Alanine Aminotransferase (ALT/SGPT) 113 U/L (14-59) 91 U/L (14-59) Alkaline Phosphatase 234 U/L (46-116) 231 U/L (46-116) Total Protein 5.4 g/dL (6.4-8.2) 5.9 g/dL (6.4-8.2) Albumin 2.6 g/dL (3.4-5.0) 2.7 g/dL (3.4-5.0) Lipase 334 U/L (73-393) Sodium Level 141 mmol/L (136-145) Potassium Level 3.1 mmol/L (3.5-5.1) Chloride Level 103 mmol/L (98-107) Carbon Dioxide Level 29 mmol/L (21-32) Anion Gap 9 (6-14) Blood Urea Nitrogen 3 mg/dL (7-20) Creatinine 0.7 mg/dL (0.6-1.0) Estimated GFR (Cockcroft-Gault) 105.6 Glucose Level 95 mg/dL (70-99) Calcium Level 8.8 mg/dL (8.5-10.1) Laboratory Tests Test 09/26/16 04:06 White Blood Count 8.8 x10^3/uL (4.0-11.0) Red Blood Count 3.94 x10^6/uL (3.50-5.40) Hemoglobin 11.0 g/dL (12.0-15.5) Hematocrit 33.5 % (36.0-47.0) Mean Corpuscular Volume 85 fL (79-100) Mean Corpuscular Hemoglobin 28 pg (25-35) Mean Corpuscular Hemoglobin Concent 33 g/dL (31-37) Red Cell Distribution Width 14.0 % (11.5-14.5) Platelet Count 209 x10^3/uL (140-400) Neutrophils (%) (Auto) 73 % (31-73) Lymphocytes (%) (Auto) 14 % (24-48) Monocytes (%) (Auto) 6 % (0-9) Eosinophils (%) (Auto) 7 % (0-3) Basophils (%) (Auto) 1 % (0-3) Neutrophils # (Auto) 6.4 x10^3uL (1.8-7.7) Lymphocytes # (Auto) 1.2 x10^3/uL (1.0-4.8) Monocytes # (Auto) 0.5 x10^3/uL (0.0-1.1) Eosinophils # (Auto) 0.6 x10^3/uL (0.0-0.7) Basophils # (Auto) 0.1 x10^3/uL (0.0-0.2) Sodium Level 141 mmol/L (136-145) Potassium Level 3.1 mmol/L (3.5-5.1) Chloride Level 103 mmol/L (98-107) Carbon Dioxide Level 29 mmol/L (21-32) Anion Gap 9 (6-14) Blood Urea Nitrogen 3 mg/dL (7-20) Creatinine 0.7 mg/dL (0.6-1.0) Estimated GFR (Cockcroft-Gault) 105.6 Glucose Level 95 mg/dL (70-99) Calcium Level 8.8 mg/dL (8.5-10.1) Total Bilirubin 0.7 mg/dL (0.2-1.0) Direct Bilirubin 0.3 mg/dL (0.0-0.2) Aspartate Amino Transf (AST/SGOT) 20 U/L (15-37) Alanine Aminotransferase (ALT/SGPT) 91 U/L (14-59) Alkaline Phosphatase 231 U/L (46-116) Total Protein 5.9 g/dL (6.4-8.2) Albumin 2.7 g/dL (3.4-5.0) Problem List Problems Medical Problems: (1) Cholelithiasis Status: Acute Assessment/Plan s/p ERCP/stent, bile leak, pancreatitis No fevers for 24 hrs, ok to DC home FU with Dr Porras 09/[address] Aviles for stent removal Problems: VIRAL BOGGS APRN September 26, 2016 08:20
[2016-09-26] MEDS: POLYETHYLENE GLYCOL 3350 17 GM PACKET. PO SCH (09:00)
[2016-09-26] MEDS ORDERED: LEVO750T31 PO (09:16)
[2016-09-26] MEDS ORDERED: POLY17PO3 PO (09:16)
[2016-09-26] MEDS ORDERED: OXYC1TAB7 PO (09:16)
[2016-09-26] MEDS ORDERED: METR500T PO (09:16)
--- NOTE | 2016-09-26 09:46 | PDOC ---
Subjective: Subjective: Feeling better. No pain. Tolerating PO. Left elbow swollen w/ IV infiltration. Objective: Objective: Tmax 99.8 Vital Signs: Vital Signs Date Time Temp Pulse Resp B/P (MAP) Pulse Ox O2 Delivery O2 Flow Rate FiO2 09/26/16 09:31 Room Air 09/26/16 07:00 99.3 80 20 128/65 (86) 97 99.3 Labs: Laboratory Tests Test 09/26/16 04:06 White Blood Count 8.8 x10^3/uL Red Blood Count 3.94 x10^6/uL Hemoglobin 11.0 g/dL Hematocrit 33.5 % Mean Corpuscular Volume 85 fL Mean Corpuscular Hemoglobin 28 pg Mean Corpuscular Hemoglobin Concent 33 g/dL Red Cell Distribution Width 14.0 % Platelet Count 209 x10^3/uL Neutrophils (%) (Auto) 73 % Lymphocytes (%) (Auto) 14 % Monocytes (%) (Auto) 6 % Eosinophils (%) (Auto) 7 % Basophils (%) (Auto) 1 % Neutrophils # (Auto) 6.4 x10^3uL Lymphocytes # (Auto) 1.2 x10^3/uL Monocytes # (Auto) 0.5 x10^3/uL Eosinophils # (Auto) 0.6 x10^3/uL Basophils # (Auto) 0.1 x10^3/uL Sodium Level 141 mmol/L Potassium Level 3.1 mmol/L Chloride Level 103 mmol/L Carbon Dioxide Level 29 mmol/L Anion Gap 9 Blood Urea Nitrogen 3 mg/dL Creatinine 0.7 mg/dL Estimated GFR (Cockcroft-Gault) 105.6 Glucose Level 95 mg/dL Calcium Level 8.8 mg/dL Total Bilirubin 0.7 mg/dL Direct Bilirubin 0.3 mg/dL Aspartate Amino Transf (AST/SGOT) 20 U/L Alanine Aminotransferase (ALT/SGPT) 91 U/L Alkaline Phosphatase 231 U/L Total Protein 5.9 g/dL Albumin 2.7 g/dL Imaging: CT A/P w/ oral and IV contrast 09/25/16 IMPRESSION: Small amount of pneumoperitoneum. The etiology is not clear but may be related to the patient's cholecystectomy approximately 2 weeks previously. 2 cm mass in the gallbladder fossa may reflect a small biloma. Stranding in the soft tissues predominantly involving the right retroperitoneum likely secondary to the bile leak referenced on recent hepatobiliary scan. Underlying associated infection is not entirely excluded. Slight fullness of the right renal pelvis and most proximal ureter. The etiology or clinical significance is uncertain PE: GEN: NAD LUNGS: CTAB HEART: RRR ABD: no tenderness NEURO/PSYCH: A & O 3 A/P: Choledocholithiasis, bile leak -s/p ERCP w/ sphincterotomy, stone extraction, stent placement 09/22/16 -post ERCP pancreatitis - lipase now normal, LFTs continue to fall -RUQ and epigastric pain improved -fever improved, on PO atbx -CT as above -- Improved. DC per primary. Follow-up w/ for stent removal as outpt - office will arrange. JONATHAN BLAIR September 26, 2016 09:46
[2016-09-26] MEDS ORDERED: metroNIDAZOLE 500 MG TABLET PO SCH (10:00)
--- NOTE | 2016-09-26 12:18 | PDOC3 ---
Discharge Summary [facility] Date of Admission: Sep 20, 2016 Discharge Date: September 26, 2016 Admitting Diagnosis cc: abdominal pain, nausea, elevated bilirubin. bile leak post cholecystectomy 1 week ago, s/p ERCP 09/22 with sphinectomy and CBD stone removal and stent placement s/p recent lap cholecystectomy anxiety depression tobacco use low albumin 2/2 liver dz, no malnutrition elevated lipase post ERCP Problems: Final Diagnosis CONSULTS sx gi Procedures ERCP and bild duct placement Brief Hospital Course Ms. Cerrato is a 21 old F, who had lap cholecystectomy for cholelithiasis 1 week ago, comes for abd pain, CT showed bile leak. She got ERCP on 09/22 with sphinectomy and CBD stone removal and stent placement. Pt cont having abd pain, better now. low T for 2 days, REpeated ct shOWED better ,. treated with zosyn for 1 week, cont levaquin and flagyl for another 3 days. dc time 35min General: Alert, Oriented X3, Cooperative, No acute distress Heart: Regular rate, Normal S1, Normal S2, No murmurs Lungs: Clear, Other (decreased inspiratory effort. negative chest retractions and/or accessory muscle use. ) Abdomen: Soft+ bs, mild RUQ tenderness Extremities: No clubbing, No cyanosis Skin: No rashes, No significant lesion Problems: Disposition home CONDITION AT DISCHARGE: Improved Diet regular Scheduled Levofloxacin (Levaquin), 750 MG PO DAILY06 Metronidazole (Flagyl), 500 MG PO Q12HR Polyethylene Glycol 3350 (Polyethylene Glycol 3350), 17 GM PO DAILY Scheduled PRN Oxycodone Hcl/Acetaminophen (Oxycodone-Acetaminophen 5-325), 1 TAB PO PRN PRN for PAIN, (Reported) Oxycodone Hcl/Acetaminophen (Oxycodone-Acetaminophen 5-325), 1 TAB PO PRN Q4HRS PRN for PAIN Promethazine Hcl (Promethazine Hcl), 25 MG PO PRN PRN for NAUSEA, (Reported) Follow Up gi and sx in 2 weeks SNEHA MOELLER MD September 26, 2016 12:18
== END 2016-09-26 12:30 | disposition home or self-care (01) | DRG 393 ==
LOC: 4 NORTH 13:41
PROVIDERS: ADMIT Internal Medicine; ATTEND Internal Medicine
PROC: 0F798DZ Dilation of Common Bile Duct with Intraluminal Device, Via Natural or Artificial Opening Endoscopic (ICD-10-PCS; principal; 2016-09-22 12:00)
PROC: 0FC98ZZ Extirpation of Matter from Common Bile Duct, Via Natural or Artificial Opening Endoscopic (ICD-10-PCS; 2016-09-22 12:00)
DX: K91.86 Retained cholelithiasis following cholecystectomy (principal); K85.90 Acute pancreatitis without necrosis or infection, unspecified; F17.210 Nicotine dependence, cigarettes, uncomplicated; I10 Essential (primary) hypertension; Z60.2 Problems related to living alone; F32.9 Major depressive disorder, single episode, unspecified; F41.9 Anxiety disorder, unspecified; M54.5 Low back pain; Z90.49 Acquired absence of other specified parts of digestive tract; Z82.49 Family history of ischemic heart disease and other diseases of the circulatory system; Z91.010 Allergy to peanuts
CPT/HCPCS: 36415; 74177; 74328; 76705; 78226; 80048; 80053; 80076; 81025; 82150; 83690; 85027; 85610; 85730; 96374; A9537; C1713; C1726; C1757; J0330; J0690; J1100; J1170; J1200; J1650; J1885; J2270; J2405; J2543; J2704; J7030; J7120; Q9967

== ENCOUNTER → 2016-10-14 | Day surgery (SDC) | payer OTHER ==
[~2016-10-14] MED LIST changes: +HYDROmorphone 2 MG/ML VIAL IV PRN; +IBUP100O7 PO; +IV RINGERS,LACTATED 1000ML 1,000 ML IV SCH; +LEVO750T31 PO; +LIDOCAINE 1% 1 ML SYRINGE. ID PRN; +LIDOCAINE 2% PF Vial for OR 5 ML VIAL. ONE; +METR500T PO; +MORPHINE SULFATE 2 MG/ML DISP.SYRIN. IV PRN; +ONDANSETRON PF 4 MG/2 ML VIAL. IV PRN; +OXYC1TAB7 PO; +POLY17PO3 PO; +PROCHLORPERAZINE 10 MG/2 ML VIAL. IV PRN; +PROM25TA10 PO; +PROPOFOL 40 ML IV ONE; +fentaNYL PF VIAL 100 MCG/2 ML VIAL IV PRN
[2016-10-14 16:12] LABS: NEG OBC UR NEG; POS OBC UR POS
[2016-10-14 16:44] VITALS: BP 108/61
== END | disposition home or self-care (01) ==
LOC: ENDOS 15:27
PROVIDERS: ATTEND Internal Medicine Gastroenterology
DX: T18.3XXA Foreign body in small intestine, initial encounter (principal); I10 Essential (primary) hypertension; K80.20 Calculus of gallbladder without cholecystitis without obstruction; F17.210 Nicotine dependence, cigarettes, uncomplicated; F41.9 Anxiety disorder, unspecified; F32.9 Major depressive disorder, single episode, unspecified; Z90.49 Acquired absence of other specified parts of digestive tract; Z87.440 Personal history of urinary (tract) infections
CPT/HCPCS: 43247; 81025; J2704